=== PATIENT | male | born 1970 | race Caucasian/White ===

== ENCOUNTER 2021-03-17 09:55 | Inpatient (IN) ==
[2021-03-17] MEDS ORDERED: dexAMETHasone**PF** 10 MG/ML VIAL IV ONE (10:06)
--- NOTE | 2021-03-17 10:27 | XRay Report ---
XR chest 1V portable CLINICAL HISTORY: Dyspnea. COMPARISON STUDY: 03/15/2021 TECHNIQUE: 1 view of the chest FINDINGS: Single frontal view of the chest demonstrates the cardiomediastinal silhouette to be within normal li mits. Compared to the previous study, patchy interstitial and alveolar opacities are again present bi laterally. The findings are most characteristic of a viral type pneumonitis. Covid 19 pneumonia shoul d be excluded. There is no evidence for pleural effusion. There is no evidence for vascular congestio n. There is no acute osseous pathology. IMPRESSION: Compared to the previous examination, patchy interstitial and alveolar opacities are agai n seen bilaterally characteristic of a viral type pneumonitis and probable Covid 19 pneumonia. ACT 112: Negative or not required by law. Electronically signed by: Darren Campos M.D. 03/17/2021 10:26 AM
[2021-03-17 10:43] LABS: Base Excess VBG 1.6 mEq/L; pH VBG 7.47 (7.36-7.41)
--- NOTE | 2021-03-17 10:54 | Emergency Department Note ---
Impression & Plan Pneumonia due to 2019 novel coronavirus, Hypoxia, Atrial fibrillation, Rhabdomyolysis ED Provider Note NAME: HELENA LEE AGE: 50 SEX: M : 1970 ARRIVES VIA: Walk-In INFORMANT: Patient, ED PROVIDER(S): Seamus Huddleston DO CHIEF COMPLAINT: Shortness of breath HPI: The patient is a 50-year-old male who presented to emergency department for an evaluation of difficulty breathing. The patient was seen in our facility 2 d ays ago and diagnosed with COVID-19 pneumonia. He was sent home on oxygen and steroids but his symptoms are not improving. He is starting to have significant shortness of breath with exertion. He continues to use his oxygen but symptoms are not much better. The patient has not seen his family doctor. He has had symptoms for approximately 9 days. He states otherwise he has been compliant with his usual outpatient medications. He denies having any fever today. The patient states that he gets very short of breath with any exertion. He denies having any hemoptysis. He does have chest pain with cough. He denies having any lower extremity swelling. ROS: See above HPI for pertinent positives & negatives. A total of 10 systems reviewed and were otherwise negative. PAST MEDICAL HISTORY: See Below PAST SURGICAL HISTORY: See Below FAMILY HISTORY: See Below SOCIAL HISTORY: See Below HOME MEDICATIONS: See Below ALLERGIES: See Below VITALS: See Below PHYSICAL EXAMINATION: GENERAL: The patient is awake and alert. He is resting comfortably in bed. EYES: The conjunctivae are clear. The pupils are round and reactive. EARS, NOSE, MOUTH AND THROAT: The nose is without any evidence of any deformity. NECK: The neck is nontender and supple. RESPIRATORY: Diminished breath sounds are noted bilaterally. There were rales in both upper lung chapa. There was conversational dyspnea appreciated. CARDIOVASCULAR: Tachycardic rate with regular rhythm was noted. There was no definite murmur. GASTROINTESTINAL: The abdomen is soft. Abdomen is nontender. MUSCULOSKELETAL/EXTREMITIES: There is no evidence of gross deformity full range of motion is noted in the hips and shoulders. SKIN: There is no obvious evidence of any rash. There are no petechiae, pallor or cyanosis noted. NEUROLOGIC: Patient is awake alert and oriented x3 MEDICAL DECISION MAKING: The patient is a 50-year-old male who presented to the emergency department for an evaluation of difficulty breathing. The patient was seen in our facility 2 days ago with similar complaints. At that time he had a work-up and was found to be suffering from Covid pneumonia. He was sent home on supplemental oxygen. He was also has been checking his oxygen saturation at home. He was called by her case management social worker today for a follow-up and apparently the patient's breathing is not any better in fact his significant other states it is worse. The patient had significant conversational dyspnea. He was also found to be in atrial fibrillation. I discussed the patient's laboratory and radiographic studies with him. He was treated with IV steroids in the emergency department. The patient was also found to be in atrial fibrillation. Because of his findings I discussed his case with the on-call [facility] hospitalist. They have agreed to evaluate the patient in the emergency department. Triage Nursing notes reviewed. Prior medical records reviewed Vital Signs: reviewed and remarkable for tachycardia and hypoxia. Differential diagnosis: Reactive airway disease, pneumonia, pneumothorax, COPD, CHF, infections, cardiac ischemia, pulmonary embolism, musculoskeletal, gastrointestinal, as well as other pathologies. ER treatment provided: See below Diagnostics interpreted by me: ECG: EKG was obtained in the emergency department. My interpretation is atrial fibrillation at 99 bpm. There was no ectopy. There was no acute ST segment abnormalities noted. No previous tracing was available. Cardiac Monitoring: An order was placed for continuous cardiac monitoring. The monitor shows a rate of 106 bpm with atrial fibrillation. Laboratory studies: As stated above and show below. Imaging studies: See below Consultation(s): I discussed this case with Dr. Conroy [facility] Past Med/Surg History Medical History Contact dermatitis Elevated blood pressure reading in office without diagnosis of hypertension Hypertriglyceridemia, sporadic Impaired glucose metabolism Laceration of fifth finger, left, complicated Laceration of fifth finger, left, complicated Metabolic syndrome Open fracture of distal phalanx of fifth finger of left hand Post-operative pain Surgical History History of shoulder replacement partial left History of surgical amputation of finger of left hand pinky finger left hand History of tooth extraction History of wisdom tooth extraction Family History Father Dyslipidemia Mother Dyslipidemia Grandfather Prostate cancer Denies family history of Ovarian cancer Myocardial infarction Breast cancer Colorectal cancer Social History Smoking Status: Never smoker Second Hand Exposure: No; Hx Alcohol Use: Yes Hx Substance Use: No Preferred Language: Tajik Communication Ability: Effective Visual Impairment: No Limitations Hearing Ability: 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 Beliefs That Will Affect Care: None marital status: Current Living Situation: Family Current Living Situation Comment: and children current occupational status: employed current occupation: [employer] Feels Safe at Home: Yes Childhood Exposure to Second-Hand Smoke: Yes caffeine: No during the past year weight has: decreased > 10 lbs Dental Care, Regularly: No Physical Activity Frequency: Daily Seatbelt Use: always Sunscreen Use: Yes Allergies Allergies Allergy/AdvReac Type Severity Reaction Status Date / Time No Known Drug Allergies Allergy Verified 03/17/21 11:01 Home Meds Home Medications Medication Instructions Recorded Confirmed ascorbic acid (vitamin C) 500 mg 500 mg PO DAILY 03/15/21 03/17/21 tablet (Vitamin C) zinc 50 mg tablet 50 mg PO DAILY 03/15/21 03/17/21 Previous Rx's Medication Instructions Recorded dexamethasone 6 mg tablet 6 mg PO DAILY #7 tab 03/15/21 (Decadron) Results & Data (ED) Vital Signs Vital Signs - 24 hr 03/17/21 09:55 03/17/21 10:00 03/17/21 10:06 Temperature 36.7 C Temperature Source Oral Temporal Artery Scan Pulse Rate 117 H Pulse Rate [Finger] 109 H Pulse Rhythm [Finger] Pulse Strength [Finger] Normal Respiratory Rate 20 20 Respiratory Effort / Characteristics Non-Labored Respiratory Depth Normal Normal Respiratory Pattern Regular Blood Pressure 115/70 Blood Pressure [Right Arm] 110/78 Blood Pressure Mean 85 Blood Pressure Mean [Right Arm] 88 Blood Pressure Position [Right Arm] Sitting Pulse Oximetry 93 91 93 Oxygen Delivery Method Nasal Cannula Nasal Cannula Nasal Cannula Oxygen Flow Rate 4 4 4 Sepsis Recent Fever Within 48 Hours No Sepsis New/Unexplained Change in Mental Status No Sepsis Action Taken by Nursing No Action Required 03/17/21 11:36 Temperature Temperature Source Pulse Rate Pulse Rate [Finger] 94 H Pulse Rhythm [Finger] Irregular Pulse Strength [Finger] Normal Respiratory Rate 20 Respiratory Effort / Characteristics Non-Labored Respiratory Depth Normal Respiratory Pattern Blood Pressure Blood Pressure [Right Arm] 121/75 Blood Pressure Mean Blood Pressure Mean [Right Arm] 90 Blood Pressure Position [Right Arm] Sitting Pulse Oximetry 93 Oxygen Delivery Method Nasal Cannula Oxygen Flow Rate 4 Sepsis Recent Fever Within 48 Hours Sepsis New/Unexplained Change in Mental Status Sepsis Action Taken by Half-Way Medications Current Medication List: was personally reviewed by me Laboratory Data Attestation: I reviewed the patient's lab results. Result diagrams: 03/17/21 10:58 03/17/21 10:58 Lab Results 03/17/21 03/17/21 03/17/21 Range/Units 10:27 10:58 10:58 WBC 14.36 H (4.8-10.8) K/uL RBC 5.73 (4.7-6.1) M/uL Hgb 17.6 (14.0-18.0) g/dL Hct 50.9 (42-52) % MCV 88.8 (80-100) fL MCH 30.7 (25-34) pg MCHC 34.6 (32-36) g/dL RDW Std Deviation 42.5 (36.4-46.3) fL RDW Coeff of Rosalinda 13.0 (11.5-14.5) % Plt Count 246 D (130-400) K/uL MPV 10.2 (7.4-10.4) fL Immature Gran % (Auto) 0.1 % Neut % (Auto) 88.5 % Lymph % (Auto) 5.2 % Lincoln % (Auto) 6.1 % Eos % (Auto) 0.0 % Baso % (Auto) 0.1 % Neut # (Auto) 12.72 H (1.4-6.5) K/uL Lymph # (Auto) 0.74 L (1.2-3.4) K/uL Lincoln # (Auto) 0.87 H (0.11-0.59) K/uL Eos # (Auto) 0.00 (0-0.5) K/uL Baso # (Auto) 0.01 (0-0.2) K/uL Immature Gran # (Auto) 0.02 (0.00-0.02) K/uL PT 10.9 (9.0-12.0) Seconds INR 1.1 (0.9-1.1) APTT 29.5 (21.0-31.0) Seconds PTT Ratio 1.1 VBG pH 7.47 H (7.36-7.41) VBG pCO2 35 L (38-50) mmHg VBG pO2 49 mmHg VBG HCO3 25 mmol/L VBG O2 Saturation 84.0 % VBG Base Excess 1.6 mEq/L Barometric Pressure 733.9 mm/Hg Sodium (136-145) mmol/L Potassium (3.5-5.1) mmol/L Chloride (98-107) mmol/L Carbon Dioxide (21-32) mmol/L Anion Gap (3-11) BUN (7-18) mg/dl Creatinine (0.6-1.4) mg/dl Est Cr Clr Drug Dosing ml/min Est GFR ( Amer) ml/min Est GFR (Non-Af Amer) ml/min BUN/Creatinine Ratio (10-20) Glucose (70-99) mg/dl Calcium (8.5-10.1) mg/dl Magnesium (1.8-2.4) mg/dl Total Bilirubin (0.2-1) mg/dl AST (15-37) U/L ALT (12-78) Alkaline Phosphatase (45-117) U/L Total Creatine Kinase (39-308) U/L Troponin I (0-0.045) ng/ml C-Reactive Protein (0-0.29) mg/dl Total Protein (6.4-8.2) gm/dl Albumin (3.4-5.0) gm/dl Globulin (2.5-4.0) gm/dl Albumin/Globulin Ratio (0.9-2) 03/17/21 03/17/21 Range/Units 10:58 10:58 WBC (4.8-10.8) K/uL RBC (4.7-6.1) M/uL Hgb (14.0-18.0) g/dL Hct (42-52) % MCV (80-100) fL MCH (25-34) pg MCHC (32-36) g/dL RDW Std Deviation (36.4-46.3) fL RDW Coeff of Rosalinda (11.5-14.5) % Plt Count (130-400) K/uL MPV (7.4-10.4) fL Immature Gran % (Auto) % Neut % (Auto) % Lymph % (Auto) % Lincoln % (Auto) % Eos % (Auto) % Baso % (Auto) % Neut # (Auto) (1.4-6.5) K/uL Lymph # (Auto) (1.2-3.4) K/uL Lincoln # (Auto) (0.11-0.59) K/uL Eos # (Auto) (0-0.5) K/uL Baso # (Auto) (0-0.2) K/uL Immature Gran # (Auto) (0.00-0.02) K/uL PT (9.0-12.0) Seconds INR (0.9-1.1) APTT (21.0-31.0) Seconds PTT Ratio VBG pH (7.36-7.41) VBG pCO2 (38-50) mmHg VBG pO2 mmHg VBG HCO3 mmol/L VBG O2 Saturation % VBG Base Excess mEq/L Barometric Pressure mm/Hg Sodium 136 (136-145) mmol/L Potassium 3.6 (3.5-5.1) mmol/L Chloride 103 (98-107) mmol/L Carbon Dioxide 24 (21-32) mmol/L Anion Gap 9.0 (3-11) BUN 20 H (7-18) mg/dl Creatinine 1.14 (0.6-1.4) mg/dl Est Cr Clr Drug Dosing 99.8 ml/min Est GFR ( Amer) 86.4 ml/min Est GFR (Non-Af Amer) 74.6 ml/min BUN/Creatinine Ratio 17.2 (10-20) Glucose 167 H (70-99) mg/dl Calcium 8.1 L (8.5-10.1) mg/dl Magnesium 2.5 H (1.8-2.4) mg/dl Total Bilirubin 0.4 (0.2-1) mg/dl AST 135 H (15-37) U/L ALT 101 H (12-78) Alkaline Phosphatase 59 (45-117) U/L Total Creatine Kinase 3164 H (39-308) U/L Troponin I < 0.015 (0-0.045) ng/ml C-Reactive Protein 0.62 H (0-0.29) mg/dl Total Protein 7.2 (6.4-8.2) gm/dl Albumin 2.9 L (3.4-5.0) gm/dl Globulin 4.3 H (2.5-4.0) gm/dl Albumin/Globulin Ratio 0.7 L (0.9-2) Administered Medications Heparin Sodium/Dextrose (Heparin Sodium/Dextrose) 25,000 units in 500 mls @ 33 mls/hr IV .[id number] [facility]; Protocol Stop: 04/16/21 13:14 Last Admin: 03/17/21 13:56 Dose: 1,650 units/hr, 33 mls/hr Documented by: [id number] Cosigned by: [id number] Discontinued Medications Dexamethasone Sodium Phosphate (DexamethasonePf 10 Mg/Ml Vial) 10 mg IV NOW ONE Stop: 03/17/21 10:07 Last Admin: 03/17/21 10:35 Dose: 10 mg Documented by: [id number] Furosemide (Furosemide 40 Mg/4 Ml Vial) 40 mg IV ONE STA Stop: 03/17/21 12:58 Last Admin: 03/17/21 13:53 Dose: 40 mg Documented by: [id number] Heparin Sodium (Porcine) (Heparin Sod (Porcine) 1000 Unit/Ml) 7,000 units IV NOW ONE Stop: 03/17/21 13:14 Last Admin: 03/17/21 13:56 Dose: 7,000 units Documented by: [id number] Cosigned by: [id number] Imaging Data Radiologist's Impression: Chest X-Ray 03/17/21 10:06 XR chest 1V portable CLINICAL HISTORY: Dyspnea. COMPARISON STUDY: 03/15/2021 TECHNIQUE: 1 view of the chest FINDINGS: Single frontal view of the chest demonstrates the cardiomediastinal silhouette to be within normal limits. Compared to the previous study, patchy interstitial and alveolar opacities are again present bilaterally. The findings are most characteristic of a viral type pneumonitis. Covid 19 pneumonia should be excluded. There is no evidence for pleural effusion. There is no evidence for vascular congestion. There is no acute osseous pathology. IMPRESSION: Compared to the previous examination, patchy interstitial and alveolar opacities are again seen bilaterally characteristic of a viral type pneumonitis and probable Covid 19 pneumonia. ACT 112: Negative or not required by law. Electronically signed by: Darren Campos M.D. 03/17/2021 10:26 AM Discharge Plan Visit Data Chief Complaint: Respiratory Problems Stated Complaint: COUGH,OXYGEN IS LOW,COVID POSITIVE ED Provider: Seamus Huddleston Discharge Problem: Pneumonia due to 2019 novel coronavirus, Hypoxia, Atrial fibrillation, Rhabdomyolysis Patient Disposition: Being Evaluated by Hospitalist
[2021-03-17 11:24] LABS: Hematocrit (blood only) 50.9 % (42-52); Hemoglobin 17.6 g/dL (14.0-18.0); Mean Corpuscular Hemoglobin 30.7 pg (25-34); Mean Corpuscular Hgb Conc 34.6 g/dL (32-36); Mean Corpuscular Volume 88.8 fL (80-100); Mean Platelet Volume 10.2 fL (7.4-10.4); Platelet Count 246 K/uL (130-400); RDW Standard Deviation 42.5 fL (36.4-46.3); Red Blood Count 5.73 M/uL (4.7-6.1); White Blood Count 14.36 K/uL (4.8-10.8)
[2021-03-17 11:35] LABS: Alanine Aminotransferase 101 (12-78); Albumin Level 2.9 gm/dl (3.4-5.0); Aspartate Aminotransferase 135 U/L (15-37); BUN Creatinine Ratio 17.2 (10-20); Blood Urea Nitrogen 20 mg/dl (7-18); C Reactive Protein 0.62 mg/dl (0-0.29); Calcium 8.1 mg/dl (8.5-10.1); Carbon Dioxide 24 mmol/L (21-32); Chloride 103 mmol/L (98-107); Creatinine Clr Calc Pharmacy 99.8 ml/min; Est GFR (African American) 86.4 ml/min; Est GFR (Non-African American) 74.6 ml/min; Glucose 167 mg/dl (70-99); Magnesium 2.5 mg/dl (1.8-2.4); Potassium 3.6 mmol/L (3.5-5.1); Sodium 136 mmol/L (136-145)
[2021-03-17 11:36] LABS: Basophils # (auto) 0.01 K/uL (0-0.2); Basophils % (auto) 0.1 %; Immature Granulocytes # (auto) 0.02 K/uL (0.00-0.02); Immature Granulocytes % (auto) 0.1 %; Lymphocytes # (auto) 0.74 K/uL (1.2-3.4); Lymphocytes % (auto) 5.2 %; Monocytes # (auto) 0.87 K/uL (0.11-0.59); Monocytes % (auto) 6.1 %; Neutrophils # (auto) 12.72 K/uL (1.4-6.5); Neutrophils % (auto) 88.5 %
[2021-03-17 11:39] LABS: INR 1.1 (0.9-1.1); Partial Thromboplastin Ratio 1.1; Partial Thromboplastin Time 29.5 Seconds (21.0-31.0); Prothrombin Time 10.9 Seconds (9.0-12.0)
[2021-03-17 11:40] LABS: Albumin Globulin Ratio 0.7 (0.9-2); Alkaline Phosphatase 59 U/L (45-117); Bilirubin,Total 0.4 mg/dl (0.2-1); Globulin 4.3 gm/dl (2.5-4.0); Total Protein 7.2 gm/dl (6.4-8.2); Troponin I < 0.015 ng/ml (0-0.045)
--- NOTE | 2021-03-17 11:40 | History & Physical Report ---
Date of Service March 17, 2021 Assessment & Plan (1) Pneumonia due to COVID-19 virus: Plan: Unvaccinated. No prior COVID. Started on Dexamethasone 6mg IV 03/15, continue dose 10 days total Given his proteinuria, limited effectiveness and day 10 of illness would hold off giving remdesivir this time. CRP improving I&Os, maintain negative balance with Lasix PRN (2) Atrial fibrillation with rapid ventricular response: Plan: Start metoprolol tartrate 25 mg p.o. twice daily Anticoagulation with IV heparin standard with bolus TTE TSH with a.m. labs (3) Acute congestive heart failure: Plan: Suspect just from rate related atrial fibrillation Lasix 40 mg IV now TTE (4) Acute respiratory failure with hypoxia: Plan: Secondary to COVID-19 pneumonia +/-mild heart failure from rate related atrial fibrillation Aim O2 sats > 90% (5) Proteinuria: Plan: Will need follow up in 4 to 6 weeks to repeat this. Blood without red blood cells concerning for myoglobinuria. Will get CK level. Plan: VTE prophylaxis-IV heparin Diet -regular Disposition -admit to [facility] telemetry Admission and Anticipated Discharge Date Admission Date: March 17, 2021 History of Present Illness Chief Complaint: Shortness of breath Primary Care Provider: Yahir Jimenez MD Gael Wadsworth is a 50 year old male who presents to the ER with shortness of breath and cough. He is unvaccinated for SARS-CoV-2 and has known COVID-19 pneumonia. He was recently seen in the emergency room 2 days ago and discharged on oxygen and dexamethasone. On follow-up from that visit by phone call today it was recommended he return to the emergency room as appeared to be in increasing respiratory distress. He has been wearing 2 L/min O2 at night however he reports waking up this morning with his O2 sats at 84% on this amount of oxygen. He reports his main problem is shortness of breath especially during a dry coughing spell. He does report mild diarrhea, chest pain only while coughing. He lives with his and 3 children and is managing to isolate upstairs away from them. He thinks he caught this during [place] [employer] [place]. Currently on day 10 of illness. In the ER he was also noted to be in atrial fibrillation. He reports having a history of this. No palpitations, leg swelling, orthopnea or PND. He was re ferred to medicine for admission ongoing management of COVID-19 pneumonia and atrial fibrillation with rapid ventricular rate. Allergies Allergy/AdvReac Type Severity Reaction Status Date / Time No Known Drug Allergies Allergy Verified 03/17/21 11:01 Home Medications Medication Instructions Recorded Confirmed Type ascorbic acid (vitamin C) 500 mg 500 mg PO DAILY 03/15/21 03/17/21 History tablet (Vitamin C) dexamethasone 6 mg tablet 6 mg PO DAILY #7 tab 03/15/21 03/17/21 Rx (Decadron) zinc 50 mg tablet 50 mg PO DAILY 03/15/21 03/17/21 History Past Med/Surg History Medical History Contact dermatitis Elevated blood pressure reading in office without diagnosis of hypertension Hypertriglyceridemia, sporadic Impaired glucose metabolism Laceration of fifth finger, left, complicated Laceration of fifth finger, left, complicated Metabolic syndrome Open fracture of distal phalanx of fifth finger of left hand Post-operative pain Surgical History History of shoulder replacement partial left History of surgical amputation of finger of left hand pinky finger left hand History of tooth extraction History of wisdom tooth extraction Family History Father Dyslipidemia Mother Dyslipidemia Grandfather Prostate cancer Denies family history of Ovarian cancer Myocardial infarction Breast cancer Colorectal cancer Social History Smoking Status: Never smoker Second Hand Exposure: No; Hx Alcohol Use: Yes Alcohol type: beer Hx Substance Use: No Preferred Language: Bengali Communication Ability: Effective Visual Impairment: No Limitations Hearing Ability: Normal 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 Beliefs That Will Affect Care: None marital status: Current Living Situation: Spouse Current Living Situation Comment: and children current occupational status: employed current occupation: [employer] Other Information That Helps Us Care for You: No Feels Safe at Home: Yes Safety Concerns: Feels Safe At This Time Childhood Exposure to Second-Hand Smoke: Yes caffeine: No during the past year weight has: decreased > 10 lbs Dental Care, Regularly: No Physical Activity Frequency: Daily Seatbelt Use: always Sunscreen Use: Yes Assistive Devices: Oxygen - Continuous Review of Systems Review of Systems: All systems reviewed & are unremarkable except as noted in HPI & below Physical Exam Constitutional: WD/WN, vitals as above no acute distress Eyes: + anicteric sclerae; normal pupil size ENMT: external ear and nose normal, oropharynx normal Neck: trachea midline, no thyromegaly Respiratory: normal respiratory effort; no respiratory distress Auscultati on: + crackles (Fine bibasal); no diminished lung sounds, no rhonchi and no wheezes Cardiovascular: Rate/Rhythm: + tachycardic and + irregularly irregular Heart Sounds: no murmur Extremities: normal capillary refill; no calf tenderness and no pedal edema Gastrointestinal (Abdomen): normal bowel sounds, soft, nontender, no hepatosplenomegaly Musculoskeletal: no cyanosis or clubbing, extremities motor strength 5/5 Skin: no rashes, warm and dry Neurologic: moves all extremities and awake; no focal motor deficits and not confused Psychiatric: A+Ox3, euthymic affect Genitourinary: no CVA tenderness Results & Data Results & Data ([facility]) Vital Signs (Past 12 Hours) Vital Signs Temp Pulse Pulse Resp BP BP Pulse Ox 03/17/21 10:06 93 03/17/21 10:00 36.7 C 117 H 20 115/70 91 03/17/21 09:55 109 H 20 110/78 93 Laboratory Results Abnormal lab results 03/17/21 03/17/21 03/17/21 Range/Units 10:27 10:58 10:58 WBC 14.36 H (4.8-10.8) K/uL Neut # (Auto) 12.72 H (1.4-6.5) K/uL Lymph # (Auto) 0.74 L (1.2-3.4) K/uL [place] # (Auto) 0.87 H (0.11-0.59) K/uL VBG pH 7.47 H (7.36-7.41) VBG pCO2 35 L (38-50) mmHg BUN 20 H (7-18) mg/dl Glucose 167 H (70-99) mg/dl Calcium 8.1 L (8.5-10.1) mg/dl Magnesium 2.5 H (1.8-2.4) mg/dl AST 135 H (15-37) U/L ALT 101 H (12-78) C-Reactive Protein 0.62 H (0-0.29) mg/dl Albumin 2.9 L (3.4-5.0) gm/dl Globulin 4.3 H (2.5-4.0) gm/dl Albumin/Globulin Ratio 0.7 L (0.9-2) Ur Specific Patterson (1.000-1.030) Urine Protein (Negative) Urine Blood (Negative) Urine WBC (Auto) (0-5) /hpf U Epithel Cells (Auto) (0-5) /lpf Urine Bacteria (Auto) (Negative) Urine Mucus (None Prsent) 03/17/21 Range/Units Unknown WBC (4.8-10.8) K/uL Neut # (Auto) (1.4-6.5) K/uL Lymph # (Auto) (1.2-3.4) K/uL [place] # (Auto) (0.11-0.59) K/uL VBG pH (7.36-7.41) VBG pCO2 (38-50) mmHg BUN (7-18) mg/dl Glucose (70-99) mg/dl Calcium (8.5-10.1) mg/dl Magnesium (1.8-2.4) mg/dl AST (15-37) U/L ALT (12-78) C-Reactive Protein (0-0.29) mg/dl Albumin (3.4-5.0) gm/dl Globulin (2.5-4.0) gm/dl Albumin/Globulin Ratio (0.9-2) Ur Specific Patterson 1.033 H (1.000-1.030) Urine Protein 4+ H (Negative) Urine Blood 3+ H (Negative) Urine WBC (Auto) 5-10 H (0-5) /hpf U Epithel Cells (Auto) 5-10 H (0-5) /lpf Urine Bacteria (Auto) 1+ H (Negative) Urine Mucus Present A (None Prsent) Diagnostic Findings XR chest 1V portable CLINICAL HISTORY: Dyspnea. COMPARISON STUDY: 03/15/2021 TECHNIQUE: 1 view of the chest FINDINGS: Single frontal view of the chest demonstrates the cardiomediastinal silhouette to be within normal limits. Compared to the previous study, patchy interstitial and alveolar opacities are again present bilaterally. The findings are most characteristic of a viral type pneumonitis. Covid 19 pneumonia should be exc luded. There is no evidence for pleural effusion. There is no evidence for vascular congestion. There is no acute osseous pathology. IMPRESSION: Compared to the previous examination, patchy interstitial and alveolar opacities are again seen bilaterally characteristic of a viral type pneumonitis and probable Covid 19 pneumonia. Medications Administered ER Medications Given: Dexamethasone 10mg IV ECG Indication: other (Irregular rhythm) Rate (beats per minute): 99 Rhythm: atrial fibrillation Findings: + other (T wave flattening in lateral leads); no acute ischemic change Comparison ECG Date: from (March 15, 2021) Change: the following changes noted (Atrial fibrillation has replaced sinus rhythm) Code Status & VTE Plan Code Status Full VTE Prophylaxis Plan VTE Prophylaxis will be ordered: Yes PG Care Time/CCT Total # of Minutes Spent Total Time Spent with Patient: Total time spent is greater than 50% in coordination of care (as documented) at patient's floor/unit and/or counseling patient: Coding Level of Care Code 27764 Initial Inpt Care Lvl 3 Diagnoses Pneumonia due to COVID-19 virus U07.1; J12.82 Acute respiratory failure with hypoxia J96.01 Proteinuria R80.9 Atrial fibrillation with rapid ventricular response I48.91 Acute congestive heart failure I50.9
[2021-03-17 12:00] LABS: Appearance Urine Clear (Clear); Bilirubin Urine Negative (Negative); Blood Urine 3+ (Negative); Color Urine Dark Yellow; Glucose Urine UA Negative (Negative); Ketones Urine Negative (Negative); Leukocyte Esterase Urine Negative (Negative); Nitrite Urine Negative (Negative); Protein Urine 4+ (Negative); RBC Urine Automated 0-4 /hpf (0-4); Specific Gravity Urine 1.033 (1.000-1.030); Urobilinogen Urine Negative (Negative)
[2021-03-17 12:14] LABS: Mucus Urine Present (None Prsent)
[2021-03-17 12:16] LABS: Bacteria Urine Automated 1+ (Negative)
[2021-03-17] MEDS ORDERED: FUROSEMIDE 40 MG/4 ML VIAL IV STA (12:57)
[2021-03-17] MEDS ORDERED: Heparin IV Adult Wt-Based Standard WITH Bolus Protocol IV SCH (13:01)
[2021-03-17] MEDS ORDERED: HEPARIN SOD (PORCINE) 1000 UNIT/ML IV ONE (13:13)
[2021-03-17] MEDS: HEPARIN SODIUM/DEXTROSE 25,000 UNITS/500 ML BAG IV SCH (13:56)
--- NOTE | 2021-03-17 15:15 | Electrocardiogram Report ---
Test Reason : Blood Pressure : / mmHG Vent. Rate : 099 BPM Atrial Rate : 086 BPM P-R Int : 000 ms QRS Dur : 090 ms QT Int : 364 ms P-R-T Axes : 000 031 -01 degrees QTc Int : 467 ms Atrial fibrillation Abnormal ECG When compared with ECG of 15-MAR-2021 16:11, Atrial fibrillation has replaced Sinus rhythm Nonspecific T wave abnormality now evident in Lateral leads Confirmed by Seamus Marie ([id number]) on 03/17/2021 3:14:36 PM Referred By: REFERRED SELF Confirmed By:Seamus Marie
[2021-03-17] MEDS ORDERED: ACETAMINOPHEN 325 MG TAB PO PRN (16:25)
[2021-03-17] MEDS ORDERED: GLUCOSE 40% GEL 15 GM TUBE PO PRN (16:25)
[2021-03-17] MEDS ORDERED: DEXTROSE 50% 50 ML SYRINGE IV PRN (16:25)
[2021-03-17] MEDS ORDERED: CARBOHYDRATES FOR HYPOGLYCEMIA PO PRN (16:25)
[2021-03-17] MEDS ORDERED: ONDANSETRON INJ 2 MG/ML 2 ML VIAL IV PRN (16:25)
[2021-03-17] MEDS ORDERED: GLUCOSE 10 TABS/TUBE PO PRN (16:25)
[2021-03-17] MEDS ORDERED: GLUCAGON FOR INJ 1 MG VIAL SQ PRN (16:25)
[2021-03-17] MEDS: INSULIN ASPART PER UNIT SC SCH ×2 (18:20→21:33)
[2021-03-17] MEDS: METOPROLOL TARTRATE 25 MG TAB PO SCH (20:50)
[2021-03-17] MEDS ORDERED: ENOXAPARIN INJ 40 MG/0.4 ML SYR SQ SCH (21:00)
[2021-03-17 21:15] LABS: Partial Thromboplastin Ratio 3.8
[2021-03-17 21:23] LABS: Partial Thromboplastin Time 99.9 Seconds (21.0-31.0)
--- NOTE | 2021-03-18 02:49 | Communication Note ---
Date of Service: March 17, 2021 Creatine kinase added to labs due to 3+ blood in urine with no RBC concerning for myoglobinuria. Total CK elevated to 3164 units/L. Would avoid further Lasix for now but also avoid IV fluids in setting of COVID-19. Repeat in a.m. with total CK and CK-MB.
[2021-03-18] MEDS ORDERED: DEXTROMETHORPHAN POLYMR COMPLX 30 MG/5 ML UDP PO PRN (02:52)
[2021-03-18 04:34] LABS: Basophils # (auto) 0.04 K/uL (0-0.2); Basophils % (auto) 0.3 %; Hematocrit (blood only) 50.6 % (42-52); Hemoglobin 17.4 g/dL (14.0-18.0); Immature Granulocytes # (auto) 0.02 K/uL (0.00-0.02); Immature Granulocytes % (auto) 0.1 %; Lymphocytes # (auto) 0.78 K/uL (1.2-3.4); Lymphocytes % (auto) 5.6 %; Mean Corpuscular Hemoglobin 30.6 pg (25-34); Mean Corpuscular Hgb Conc 34.4 g/dL (32-36); Mean Corpuscular Volume 88.9 fL (80-100); Mean Platelet Volume 9.5 fL (7.4-10.4); Monocytes # (auto) 0.94 K/uL (0.11-0.59); Monocytes % (auto) 6.7 %; Neutrophils # (auto) 12.16 K/uL (1.4-6.5); Neutrophils % (auto) 87.3 %; Platelet Count 248 K/uL (130-400); RDW Standard Deviation 42.8 fL (36.4-46.3); Red Blood Count 5.69 M/uL (4.7-6.1); White Blood Count 13.94 K/uL (4.8-10.8)
[2021-03-18 04:52] LABS: Albumin Level 2.6 gm/dl (3.4-5.0); BUN Creatinine Ratio 16.2 (10-20); C Reactive Protein 0.77 mg/dl (0-0.29); Calcium 7.9 mg/dl (8.5-10.1); Creatinine Clr Calc Pharmacy 75.1 ml/min; Est GFR (African American) 71.7 ml/min; Est GFR (Non-African American) 61.9 ml/min; Potassium 3.9 mmol/L (3.5-5.1)
[2021-03-18 04:57] LABS: Partial Thromboplastin Ratio 2.5
[2021-03-18 04:59] LABS: Partial Thromboplastin Time 65.5 Seconds (21.0-31.0)
[2021-03-18 05:07] LABS: Albumin Globulin Ratio 0.6 (0.9-2); Bilirubin,Total 0.6 mg/dl (0.2-1); Creatine Kinase MB 19.5 ng/ml (0.5-3.6); Globulin 4.3 gm/dl (2.5-4.0); Thyroid Stimulating Hormone 0.374 uIu/ml (0.300-4.500); Total Protein 6.9 gm/dl (6.4-8.2)
[2021-03-18] MEDS: HEPARIN SODIUM/DEXTROSE 25,000 UNITS/500 ML BAG IV SCH (05:37)
--- NOTE | 2021-03-18 08:34 | Hospitalist Progress Note ---
Date of Service March 18, 2021 Assessment & Plan (1) Acute respiratory failure with hypoxia: Plan: Secondary to COVID-19 pneumonia +/-mild heart failure preserved ejection fraction from rate related atrial fibrillation Aim O2 sats > 90% (2) Pneumonia due to COVID-19 virus: Plan: Unvaccinated. No prior COVID. Started on Dexamethasone 6mg IV 12/8 Given day 10 of illness out of time frame remdesivir this time. CRP improving I&Os, maintain negative balance with Lasix PRN Improvement in oxygen requirement with proning (3) Atrial fibrillation with rapid ventricular response: Plan: Likely related to stressor of illness and possibley covid affect on heart Start metoprolol tartrate 25 mg p.o. twice daily Anticoagulation with IV heparin standard with bolus. can transition to lovenox when stable TTE echocardiogram performed 1211 shows moderate concentric LVH, EF 50 to 55% dilated right ventricle with normal right ventricular function no significant valvular abnormalities TSH normal 03/18/21 (4) Acute congestive heart failure: Plan: Suspect just from rate related atrial fibrillation Lasix 40 mg IV TTE (5) Proteinuria: Plan: Will need follow up in 4 to 6 weeks to repeat this. urine without red blood cells concerning for myoglobinuria. elevated CK, Plan: VTE prophylaxis-IV therapeutic enoxaparin due to atrial arrhythmia Diet -regular Disposition -admit to [facility] telemetry Admission and Anticipated Discharge Date Admission Date: March 17, 2021 Subjective Patient was proning when I entered the room he feels better after proning for most of the morning. His oxygen saturations also improved and his oxygen need is gone down. He is in a productive cough Review of Systems Review of Systems: Moderate distress and fatigue no headache, no visual changes no speech or swallowing issues no chest pain, pressure or palpitations Continue shortness of breath, nonproductive cough or wheezes no abdominal pain, nausea or vomiting, no diarrhea no dysuria, hematuria or frequency no focal joint pain or swelling no back pain, CVA tenderness or radicular pain no bruising, bleeding or rashes no focal signs of weakness or numbness or altered sensation no complaints of anxiety or depression.. Physical Exam Physical Exam: The patient appeared mild to moderate respiratory distress Vital signs as documented. Head exam is normocephalic atraumatic Neck is without JVD, thyromegaly, or carotid bruits. Lungs are coarse bilaterally in all lung chapa tachypnea Cardiac exam, Rhythm is regular.. No murmurs, rubs or gallops. Abdominal exam reveals normal bowel sounds, soft non tender, no masses Extremities are nonedematous and both pedal pulses are present Neurologic exam is alert and oriented, no focal loss of strength or sensation Skin is without bruises or rashes Psychologically is without concerns for anxiety or depression.. Results & Data Results & Data ([facility]) Vital Signs (Past 12 Hours) Vital Signs Temp Pulse Pulse Resp BP Pulse Ox Pulse Ox 03/18/21 07:41 90 03/18/21 06:24 98.8 F 90 18 116/80 90 03/18/21 02:15 98.8 F 78 18 110/68 90 03/18/21 00:21 98.8 F 94 H 18 116/71 90 03/17/21 23:00 86 18 104/70 92 92 03/17/21 20:51 94 H 16 106/77 91 PG Care Time/CCT Total # of Minutes Spent Total Time Spent with Patient: Total time spent is greater than 50% in coordination of care (as documented) at patient's floor/unit and/or counseling patient: Coding Level of Care Code 15441 Subseq Hosp Care Lvl 3 Diagnoses Pneumonia due to COVID-19 virus U07.1; J12.82 Atrial fibrillation with rapid ventricular response I48.91 Acute congestive heart failure I50.9 Acute respiratory failure with hypoxia J96.01 Proteinuria R80.9
[2021-03-18] MEDS: dexAMETHasone 6 MG in SYRINGE 0 ML IV SCH (08:50)
[2021-03-18] MEDS: ASCORBIC ACID 500 MG TAB PO SCH (08:51)
[2021-03-18] MEDS: METOPROLOL TARTRATE 25 MG TAB PO SCH ×2 (08:51→20:33)
[2021-03-18] MEDS ORDERED: FUROSEMIDE 40 MG/4 ML VIAL IV SCH (09:00)
[2021-03-18] MEDS: INSULIN ASPART PER UNIT SC SCH ×4 (09:15→21:25)
[2021-03-18] MEDS ORDERED: ENOXAPARIN 1 MG/KG SQ SCH (19:00)
[2021-03-18] MEDS: ENOXAPARIN 100 MG/1ML SYR SQ SCH (20:28)
[2021-03-19] MEDS ORDERED: COUGH DROP (SUGAR FREE) LOZ 24 LOZ/1 BOX BUCCAL PRN (01:07)
[2021-03-19] MEDS ORDERED: BENZONATATE 100 MG CAPSULE PO PRN (01:08)
[2021-03-19] MEDS ORDERED: ALBUT/IPRATROP 3MG/0.5MG NEB 3 ML VIAL NEB STA (01:45)
[2021-03-19] MEDS: ENOXAPARIN 100 MG/1ML SYR SQ SCH ×2 (06:35→20:25)
[2021-03-19] MEDS: ASCORBIC ACID 500 MG TAB PO SCH (09:00)
[2021-03-19] MEDS: dexAMETHasone 6 MG in SYRINGE 0 ML IV SCH (09:00)
[2021-03-19] MEDS: METOPROLOL TARTRATE 25 MG TAB PO SCH ×2 (09:01→20:25)
[2021-03-19 09:06] LABS: BUN Creatinine Ratio 22.5 (10-20); Calcium 8.1 mg/dl (8.5-10.1); Creatinine Clr Calc Pharmacy 91.6 ml/min; Est GFR (African American) 91.2 ml/min; Est GFR (Non-African American) 78.7 ml/min; Potassium 4.2 mmol/L (3.5-5.1)
[2021-03-19] MEDS: INSULIN ASPART PER UNIT SC SCH ×4 (09:28→21:00)
--- NOTE | 2021-03-19 17:56 | Hospitalist Progress Note ---
Date of Service March 19, 2021 Assessment & Plan (1) Acute respiratory failure with hypoxia: Plan: Secondary to COVID-19 pneumonia +/-mild heart failure preserved ejection fraction from rate related atrial fibrillation Aim O2 sats > 90% (2) Pneumonia due to COVID-19 virus: Plan: Unvaccinated. No prior COVID. Started on Dexamethasone 6mg IV 12/8 Given day 10 of illness out of time frame remdesivir this time. CRP to low for baricitinib (3) Atrial fibrillation with rapid ventricular response: Plan: Likely related to stressor of illness and possibley covid affect on heart Start metoprolol tartrate 25 mg p.o. twice daily Anticoagulation with IV heparin standard with bolus. transitioned to lovenox when stable TTE echocardiogram performed 1211 shows moderate concentric LVH, EF 50 to 55% dilated right ventricle with normal right ventricular function no significant valvular abnormalities TSH normal 03/18/21 (4) Acute congestive heart failure: Plan: Suspect just from rate related atrial fibrillation Lasix 40 mg IV TTE shows preserved EF (5) Proteinuria: Plan: Will need follow up in 4 to 6 weeks to repeat this. urine without red blood cells concerning for myoglobinuria. elevated CK, but down trending concern if myositis from covid repeat ua for blood and rbc Plan: VTE prophylaxis-IV therapeutic enoxaparin due to atrial arrhythmia Diet -regular Disposition -admit to [facility] telemetry Admission and Anticipated Discharge Date Admission Date: March 17, 2021 Subjective Patient continues to be good at proning and he feels better after proning for most of the morning. His oxygen saturations are stable. He is with a productive cough Review of Systems Review of Systems: Moderate distress and fatigue no headache, no visual changes no speech or swallowing issues no chest pain, pressure or palpitations Continue shortness of breath, nonproductive cough or wheezes no abdominal pain, nausea or vomiting, no diarrhea no dysuria, hematuria or frequency no focal joint pain or swelling no back pain, CVA tenderness or radicular pain no bruising, bleeding or rashes no focal signs of weakness or numbness or altered sensation no complaints of anxiety or depression.. Physical Exam Physical Exam: The patient appeared mild to moderate respiratory distress Vital signs as documented. Head exam is normocephalic atraumatic Neck is without JVD, thyromegaly, or carotid bruits. Lungs are coarse bilaterally in all lung chapa tachypnea Cardiac exam, Rhythm is regular.. No murmurs, rubs or gallops. Abdominal exam reveals normal bowel sounds, soft non tender, no masses Extremities are nonedematous and both pedal pulses are present Neurologic exam is alert and oriented, no focal loss of strength or sensation Skin is without bruises or rashes Psychologically is without concerns for anxiety or depression.. Results & Data Results & Data ([facility]) Vital Signs (Past 12 Hours) Vital Signs Temp Pulse Pulse Resp BP Pulse Ox 03/19/21 17:00 97.9 F 88 20 108/71 93 03/19/21 15:14 84 03/19/21 12:00 98.2 F 82 20 101/67 92 03/19/21 08:00 98.1 F 85 90 20 101/59 L 95 PG Care Time/CCT Total # of Minutes Spent Total Time Spent with Patient: Total time spent is greater than 50% in coordination of care (as documented) at patient's floor/unit and/or counseling patient: Coding Level of Care Code 26395 Subseq Hosp Care Lvl 3 Diagnoses Acute respiratory failure with hypoxia J96.01 Pneumonia due to COVID-19 virus U07.1; J12.82 Atrial fibrillation with rapid ventricular response I48.91 Acute congestive heart failure I50.9 Proteinuria R80.9
[2021-03-20 00:39] LABS: Appearance Urine Clear (Clear); Bacteria Urine Automated Negative (Negative); Bilirubin Urine Negative (Negative); Blood Urine 3+ (Negative); Color Urine Dark Yellow; Glucose Urine UA Negative (Negative); Ketones Urine Negative (Negative); Leukocyte Esterase Urine Negative (Negative); Nitrite Urine Negative (Negative); Protein Urine 3+ (Negative); RBC Urine Automated 0-4 /hpf (0-4); Specific Gravity Urine 1.033 (1.000-1.030); Urobilinogen Urine Negative (Negative)
[2021-03-20] MEDS: ENOXAPARIN 100 MG/1ML SYR SQ SCH ×2 (07:59→20:58)
[2021-03-20] MEDS: dexAMETHasone 6 MG in SYRINGE 0 ML IV SCH (07:59)
[2021-03-20] MEDS: METOPROLOL TARTRATE 25 MG TAB PO SCH ×2 (08:00→21:02)
[2021-03-20] MEDS: ASCORBIC ACID 500 MG TAB PO SCH (08:00)
[2021-03-20 08:06] LABS: Basophils # (auto) 0.02 K/uL (0-0.2); Basophils % (auto) 0.2 %; Hematocrit (blood only) 52.2 % (42-52); Hemoglobin 17.5 g/dL (14.0-18.0); Immature Granulocytes # (auto) 0.02 K/uL (0.00-0.02); Immature Granulocytes % (auto) 0.2 %; Lymphocytes # (auto) 0.73 K/uL (1.2-3.4); Lymphocytes % (auto) 6.8 %; Mean Corpuscular Hemoglobin 30.4 pg (25-34); Mean Corpuscular Hgb Conc 33.5 g/dL (32-36); Mean Corpuscular Volume 90.6 fL (80-100); Monocytes # (auto) 0.51 K/uL (0.11-0.59); Monocytes % (auto) 4.7 %; Neutrophils # (auto) 9.48 K/uL (1.4-6.5); Neutrophils % (auto) 88.1 %; Platelet Count 274 K/uL (130-400); RDW Coefficient of Variation 12.9 % (11.5-14.5); RDW Standard Deviation 42.3 fL (36.4-46.3); Red Blood Count 5.76 M/uL (4.7-6.1); White Blood Count 10.76 K/uL (4.8-10.8)
[2021-03-20] MEDS: INSULIN ASPART PER UNIT SC SCH ×4 (08:27→21:26)
--- NOTE | 2021-03-20 20:11 | Hospitalist Progress Note ---
Date of Service March 20, 2021 Assessment & Plan (1) Acute respiratory failure with hypoxia: Plan: Secondary to COVID-19 pneumonia +/-mild heart failure preserved ejection fraction from rate related atrial fibrillation Aim O2 sats > 90% (2) Pneumonia due to COVID-19 virus: Plan: Unvaccinated. No prior COVID. Started on Dexamethasone 6mg IV 12/8 Given day 10 of illness out of time frame remdesivir this time. CRP to low for baricitinib (3) Atrial fibrillation with rapid ventricular response: Plan: Likely related to stressor of illness and possibley covid affect on heart Start metoprolol tartrate 25 mg p.o. twice daily Anticoagulation with IV heparin standard with bolus. transitioned to lovenox when stable TTE echocardiogram performed 1211 shows moderate concentric LVH, EF 50 to 55% dilated right ventricle with normal right ventricular function no significant valvular abnormalities TSH normal 03/18/21 (4) Acute congestive heart failure: Plan: Suspect just from rate related atrial fibrillation Lasix 40 mg IV TTE shows preserved EF (5) Proteinuria: Plan: Will need follow up in 4 to 6 weeks to repeat this. urine without red blood cells concerning for myoglobinuria. elevated CK, but down trending concern if myositis from covid repeat ua for blood and rbc , shows persistent blood but not RBC's Plan: VTE prophylaxis-IV therapeutic enoxaparin due to atrial arrhythmia Diet -regular Disposition -admit to [facility] telemetry Admission and Anticipated Discharge Date Admission Date: March 17, 2021 Subjective Patient continues to prone as much as able and he feels better after proning for most of the morning. His oxygen saturations are stable. He is with a productive cough Review of Systems Review of Systems: Moderate distress and fatigue no headache, no visual changes no speech or swallowing issues no chest pain, pressure or palpitations Continue shortness of breath, nonproductive cough or wheezes no abdominal pain, nausea or vomiting, no diarrhea no dysuria, hematuria or frequency no focal joint pain or swelling no back pain, CVA tenderness or radicular pain no bruising, bleeding or rashes no focal signs of weakness or numbness or altered sensation no complaints of anxiety or depression.. Physical Exam Physical Exam: The patient appeared mild to moderate respiratory distress Vital signs as documented. Head exam is normocephalic atraumatic Neck is without JVD, thyromegaly, or carotid bruits. Lungs are coarse bilaterally in all lung chapa tachypnea Cardiac exam, Rhythm is regular.. No murmurs, rubs or gallops. Abdominal exam reveals normal bowel sounds, soft non tender, no masses Extremities are nonedematous and both pedal pulses are present Neurologic exam is alert and oriented, no focal loss of strength or sensation Skin is without bruises or rashes Psychologically is without concerns for anxiety or depression.. Results & Data Results & Data ([facility]) Vital Signs (Past 12 Hours) Vital Signs Temp Pulse Pulse Resp BP Pulse Ox 03/20/21 18:30 82 03/20/21 16:53 98.2 F 80 17 117/72 93 03/20/21 11:54 98.2 F 81 17 99/62 L 95 PG Care Time/CCT Total # of Minutes Spent Total Time Spent with Patient: Total time spent is greater than 50% in coordination of care (as documented) at patient's floor/unit and/or counseling patient: Coding Level of Care Code 33904 Subseq Hosp Care Lvl 3 Diagnoses Acute respiratory failure with hypoxia J96.01 Pneumonia due to COVID-19 virus U07.1; J12.82 Atrial fibrillation with rapid ventricular response I48.91 Acute congestive heart failure I50.9 Proteinuria R80.9
[2021-03-21] MEDS ORDERED: FUROSEMIDE INJ 20 MG/2 ML VIAL IV SCH (07:30)
[2021-03-21] MEDS: INSULIN ASPART PER UNIT SC SCH ×4 (08:30→21:00)
[2021-03-21] MEDS: dexAMETHasone 6 MG in SYRINGE 0 ML IV SCH (08:39)
[2021-03-21] MEDS: ENOXAPARIN 100 MG/1ML SYR SQ SCH ×2 (08:39→20:50)
[2021-03-21] MEDS: METOPROLOL TARTRATE 25 MG TAB PO SCH ×2 (08:40→20:50)
[2021-03-21] MEDS: ASCORBIC ACID 500 MG TAB PO SCH (08:40)
--- NOTE | 2021-03-21 17:22 | Hospitalist Progress Note ---
Date of Service March 21, 2021 Assessment & Plan (1) Acute respiratory failure with hypoxia: Plan: Secondary to COVID-19 pneumonia +/-mild heart failure preserved ejection fraction from rate related atrial fibrillation Aim O2 sats > 90%, will move to vapotherm if needed (2) Pneumonia due to COVID-19 virus: Plan: Unvaccinated. No prior COVID. Started on Dexamethasone 6mg IV 03/15 Given day 10 of illness out of time frame remdesivir this time. CRP to low for baricitinib (3) Atrial fibrillation with rapid ventricular response: Plan: Likely related to stressor of illness and possibly covid affect on heart, converted to sinus rhythm 03/20/21` Start metoprolol tartrate 25 mg p.o. twice daily Anticoagulation with IV heparin standard with bolus. transitioned to lovenox will keep anticoagulated for one month TTE echocardiogram performed 1211 shows moderate concentric LVH, EF 50 to 55% dilated right ventricle with normal right ventricular function no significant valvular abnormalities TSH normal 03/18/21 (4) Acute congestive heart failure: Plan: Suspect just from rate related atrial fibrillation Lasix 40 mg IV TTE shows preserved EF , hfpef (5) Proteinuria: Plan: Will need follow up in 4 to 6 weeks to repeat this. urine without red blood cells concerning for myoglobinuria. elevated CK, but down trending concern if myositis from covid repeat ua for blood and rbc , shows persistent blood but not RBC's Plan: VTE prophylaxis-IV therapeutic enoxaparin due to atrial arrhythmia Diet -regular Disposition -continues on med telemetry Admission and Anticipated Discharge Date Admission Date: March 17, 2021 Subjective Patient continues to prone as much as able and he feels better after proning he has had mild excalation of oxygen need, but now is outside the window for Baricitinib. on the edge of moving to vapotherm, did have some lasix today Review of Systems Review of Systems: Moderate distress and fatigue no headache, no visual changes no speech or swallowing issues no chest pain, pressure or palpitations Continue shortness of breath, nonproductive cough or wheezes no abdominal pain, nausea or vomiting, no diarrhea no dysuria, hematuria or frequency no focal joint pain or swelling no back pain, CVA tenderness or radicular pain no bruising, bleeding or rashes no focal signs of weakness or numbness or altered sensation no complaints of anxiety or depression.. Physical Exam Physical Exam: The patient appeared mild to moderate respiratory distress Vital signs as documented. Head exam is normocephalic atraumatic Neck is without JVD, thyromegaly, or carotid bruits. Lungs are coarse bilaterally in all lung chapa tachypnea Cardiac exam, Rhythm is regular.. No murmurs, rubs or gallops. Abdominal exam reveals normal bowel sounds, soft non tender, no masses Extremities are nonedematous and both pedal pulses are present Neurologic exam is alert and oriented, no focal loss of strength or sensation Skin is without bruises or rashes Psychologically is without concerns for anxiety or depression. Results & Data Results & Data ([facility]) Vital Signs (Past 12 Hours) Vital Signs Temp Pulse Pulse Resp BP Pulse Ox 03/21/21 15:37 63 03/21/21 15:23 68 22 91 03/21/21 12:14 99.9 F H 90 18 112/68 97 03/21/21 07:59 98.2 F 72 20 102/60 94 03/21/21 07:11 64 PG Care Time/CCT Total # of Minutes Spent Total Time Spent with Patient: Total time spent is greater than 50% in coordination of care (as documented) at patient's floor/unit and/or counseling patient: Coding Level of Care Code 63646 Subseq Hosp Care Lvl 3 Diagnoses Acute respiratory failure with hypoxia J96.01 Pneumonia due to COVID-19 virus U07.1; J12.82 Atrial fibrillation with rapid ventricular response I48.91 Acute congestive heart failure I50.9 Proteinuria R80.9
[2021-03-22 07:44] LABS: Basophils # (auto) 0.01 K/uL (0-0.2); Basophils % (auto) 0.1 %; Eosinophils # (auto) 0.05 K/uL (0-0.5); Eosinophils % (auto) 0.6 %; Hematocrit (blood only) 46.3 % (42-52); Hemoglobin 15.4 g/dL (14.0-18.0); Immature Granulocytes # (auto) 0.05 K/uL (0.00-0.02); Immature Granulocytes % (auto) 0.6 %; Lymphocytes # (auto) 0.57 K/uL (1.2-3.4); Lymphocytes % (auto) 6.5 %; Mean Corpuscular Hgb Conc 33.3 g/dL (32-36); Mean Corpuscular Volume 90.1 fL (80-100); Mean Platelet Volume 9.9 fL (7.4-10.4); Monocytes # (auto) 0.25 K/uL (0.11-0.59); Monocytes % (auto) 2.8 %; Neutrophils % (auto) 89.4 %; Platelet Count 340 K/uL (130-400); RDW Coefficient of Variation 12.5 % (11.5-14.5); RDW Standard Deviation 41.4 fL (36.4-46.3); Red Blood Count 5.14 M/uL (4.7-6.1); White Blood Count 8.83 K/uL (4.8-10.8)
[2021-03-22] MEDS: INSULIN ASPART PER UNIT SC SCH ×4 (08:04→21:16)
[2021-03-22] MEDS: ENOXAPARIN 100 MG/1ML SYR SQ SCH ×2 (08:20→20:59)
[2021-03-22] MEDS: FUROSEMIDE INJ 20 MG/2 ML VIAL IV SCH (08:20)
[2021-03-22] MEDS: METOPROLOL TARTRATE 25 MG TAB PO SCH ×2 (08:20→21:01)
[2021-03-22] MEDS: ASCORBIC ACID 500 MG TAB PO SCH (08:20)
[2021-03-22] MEDS: dexAMETHasone 20 MG in DEXTROSE 5% 25 ML IV SCH (08:21)
[2021-03-22] MEDS ORDERED: dexAMETHasone 20 MG in SYRINGE 0 ML IV SCH (09:00)
[2021-03-22 09:10] LABS: Hepatitis B Surf Ag Rflx Conf Neg (Neg)
[2021-03-22 09:38] LABS: Hepatitis C IgG 13Yrs+Old_Rflx Neg (Neg)
[2021-03-22 14:37] LABS: Total Protein 24 Hour Urine 910.5 mg/24 Hr (0-149.1); Urine Total Protein 60.7 mg/dl
--- NOTE | 2021-03-22 18:52 | Hospitalist Progress Note ---
Date of Service March 22, 2021 Assessment & Plan (1) Acute respiratory failure with hypoxia: Plan: Secondary to COVID-19 pneumonia +/-mild heart failure preserved ejection fraction from rate related atrial fibrillation Aim O2 sats > 90%, will move to vapotherm if needed (2) Pneumonia due to COVID-19 virus: Plan: Unvaccinated. No prior COVID. Started on Dexamethasone 6mg IV 03/15, changed to 20 mg daily x 5 d then 10 x 5 d, Given day 10 of illness out of time frame remdesivir this time. CRP to low for baricitinib lasix 20 mg started daily (3) Atrial fibrillation with rapid ventricular response: Plan: Likely related to stressor of illness and possibly covid affect on heart, converted to sinus rhythm 03/20/21` Start metoprolol tartrate 25 mg p.o. twice daily Anticoagulation with IV heparin standard with bolus. transitioned to lovenox will keep anticoagulated for one month TTE echocardiogram performed 1211 shows moderate concentric LVH, EF 50 to 55% dilated right ventricle with normal right ventricular function no significant valvular abnormalities TSH normal 03/18/21 (4) Acute congestive heart failure: Plan: Suspect just from rate related atrial fibrillation Lasix 20 mg iv daily TTE shows preserved EF , hfpef (5) Proteinuria: Plan: Will need follow up in 4 to 6 weeks to repeat this. urine without red blood cells concerning for myoglobinuria. elevated CK, but down trending concern if myositis from covid repeat ua for blood and rbc , shows persistent blood but not RBC's 24 hour urine for protein, send out serology consider follow up with nephrology Plan: VTE prophylaxis-IV therapeutic enoxaparin due to atrial arrhythmia Diet -regular Disposition -continues on med telemetry Admission and Anticipated Discharge Date Admission Date: March 17, 2021 Subjective Patient continues to prone as much as able and he feels better after proning he has had mild excalation of oxygen need, but now is outside the window for Baricitinib. started on high flow increase steroids and start daily lasix Review of Systems Review of Systems: Moderate distress and fatigue no headache, no visual changes no speech or swallowing issues no chest pain, pressure or palpitations Continue shortness of breath, nonproductive cough or wheezes no abdominal pain, nausea or vomiting, no diarrhea no dysuria, hematuria or frequency no focal joint pain or swelling no back pain, CVA tenderness or radicular pain no bruising, bleeding or rashes no focal signs of weakness or numbness or altered sensation no complaints of anxiety or depression.. Physical Exam Physical Exam: The patient appeared mild to moderate respiratory distress Vital signs as documented. Head exam is normocephalic atraumatic Neck is without JVD, thyromegaly, or carotid bruits. Lungs are coarse bilaterally in all lung chapa tachypnea Cardiac exam, Rhythm is regular.. No murmurs, rubs or gallops. Abdominal exam reveals normal bowel sounds, soft non tender, no masses Extremities are nonedematous and both pedal pulses are present Neurologic exam is alert and oriented, no focal loss of strength or sensation Skin is without bruises or rashes Psychologically is without concerns for anxiety or depression. Results & Data Results & Data ([facility]) Vital Signs (Past 12 Hours) Vital Signs Temp Pulse Pulse Resp BP Pulse Ox 03/22/21 16:16 98.2 F 56 L 18 108/56 L 95 03/22/21 15:47 76 03/22/21 15:38 62 22 97 03/22/21 11:58 98.6 F 65 18 97/54 L 88 L 03/22/21 08:13 97.9 F 67 18 93/44 L 89 L 03/22/21 07:15 88 22 91 PG Care Time/CCT Total # of Minutes Spent Total Time Spent with Patient: Total time spent is greater than 50% in coordination of care (as documented) at patient's floor/unit and/or counseling patient: Coding Level of Care Code 76608 Subseq Hosp Care Lvl 3 Diagnoses Acute respiratory failure with hypoxia J96.01 Pneumonia due to COVID-19 virus U07.1; J12.82 Atrial fibrillation with rapid ventricular response I48.91 Acute congestive heart failure I50.9 Proteinuria R80.9
[2021-03-22] MEDS ORDERED: QUEtiapine FUMARATE 25 MG TABLET PO SCH (21:00)
[2021-03-23] MEDS: ENOXAPARIN 100 MG/1ML SYR SQ SCH ×2 (07:59→19:45)
[2021-03-23] MEDS: ASCORBIC ACID 500 MG TAB PO SCH (08:06)
[2021-03-23] MEDS: INSULIN ASPART PER UNIT SC SCH ×4 (08:16→21:29)
[2021-03-23] MEDS: dexAMETHasone 20 MG in DEXTROSE 5% 25 ML IV SCH (08:56)
[2021-03-23] MEDS: FUROSEMIDE INJ 20 MG/2 ML VIAL IV SCH (09:00)
[2021-03-23] MEDS: METOPROLOL TARTRATE 25 MG TAB PO SCH ×2 (09:03→19:46)
[2021-03-23 12:43] LABS: Albumin Level 2.3 gm/dl (3.4-5.0); BUN Creatinine Ratio 27.2 (10-20); Calcium 9.1 mg/dl (8.5-10.1); Creatinine Clr Calc Pharmacy 109.8 ml/min; Est GFR (African American) 113.5 ml/min; Est GFR (Non-African American) 97.9 ml/min; Potassium 3.9 mmol/L (3.5-5.1)
[2021-03-23 12:45] LABS: Total Protein 7.7 gm/dl (6.4-8.2)
--- NOTE | 2021-03-23 12:58 | Hospitalist Progress Note ---
Date of Service March 23, 2021 Assessment & Plan (1) Acute respiratory failure with hypoxia: Plan: Secondary to COVID-19 pneumonia +/-mild heart failure preserved ejection fraction from rate related atrial fibrillation Aim O2 sats > 90%, did move high flow on 03/22/21 (2) Pneumonia due to COVID-19 virus: Plan: Unvaccinated. No prior COVID. Started on Dexamethasone 6mg IV 03/15, changed to 20 mg daily x 5 d(ld 03/26) then 10 x 5 d (ld 04/01), Given day 10 of illness out of time frame remdesivir this time. CRP to low for baricitinib lasix 20 mg started daily 03/22/21 (3) Atrial fibrillation with rapid ventricular response: Plan: Likely related to stressor of illness and possibly covid affect on heart, converted to sinus rhythm 03/20/21` Start metoprolol tartrate 25 mg p.o. twice daily Anticoagulation with IV heparin standard with bolus. transitioned to lovenox will keep anticoagulated for one month TTE echocardiogram performed 1210 shows moderate concentric LVH, EF 50 to 55% dilated right ventricle with normal right ventricular function no significant valvular abnormalities TSH normal 03/18/21 (4) Acute congestive heart failure: Plan: Suspect just from rate related atrial fibrillation Lasix 20 mg iv daily TTE shows preserved EF , hfpef (5) Proteinuria: Plan: Will need follow up in 4 to 6 weeks to repeat this. urine without red blood cells concerning for myoglobinuria. elevated CK, but down trending concern if myositis from covid repeat ua for blood and rbc , shows persistent blood but not RBC's 24 hour urine for protein shows 900 mg/24 hours , send out serology ask for nephrology consult Plan: VTE prophylaxis-sc therapeutic enoxaparin due to atrial arrhythmia Diet -regular Disposition -continues on med telemetry Admission and Anticipated Discharge Date Admission Date: March 17, 2021 Subjective Patient continues to prone as much as able and he feels better after proning he has had mild excalation of oxygen need, but now is outside the window for Baricitinib. high flow increased steroids and started on daily lasix Review of Systems Review of Systems: Moderate distress and fatigue no headache, no visual changes no speech or swallowing issues no chest pain, pressure or palpitations Continue shortness of breath, nonproductive cough or wheezes no abdominal pain, nausea or vomiting, no diarrhea no dysuria, hematuria or frequency no focal joint pain or swelling no back pain, CVA tenderness or radicular pain no bruising, bleeding or rashes no focal signs of weakness or numbness or altered sensation no complaints of anxiety or depression.. Physical Exam Physical Exam: The patient appeared mild to moderate respiratory distress Vital signs as documented. Head exam is normocephalic atraumatic Neck is without JVD, thyromegaly, or carotid bruits. Lungs are coarse bilaterally in all lung chapa tachypnea Cardiac exam, Rhythm is regular.. No murmurs, rubs or gallops. Abdominal exam reveals normal bowel sounds, soft non tender, no masses Extremities are nonedematous and both pedal pulses are present Neurologic exam is alert and oriented, no focal loss of strength or sensation Skin is without bruises or rashes Psychologically is without concerns for anxiety or depression. Results & Data Results & Data ([facility]) Vital Signs (Past 12 Hours) Vital Signs Temp Pulse Pulse Resp BP Pulse Ox 03/23/21 12:14 98.2 F 61 18 88/48 L 95 03/23/21 10:44 77 20 89 L 03/23/21 08:22 99.5 F 68 22 102/65 90 03/23/21 04:46 53 L 03/23/21 03:00 97.9 F 60 17 98/53 L 85 L 03/23/21 02:11 49 L 18 93 PG Care Time/CCT Total # of Minutes Spent Total Time Spent with Patient: Total time spent is greater than 50% in coordination of care (as documented) at patient's floor/unit and/or counseling patient: Coding Level of Care Code 21549 Subseq Hosp Care Lvl 3 Diagnoses Acute respiratory failure with hypoxia J96.01 Pneumonia due to COVID-19 virus U07.1; J12.82 Atrial fibrillation with rapid ventricular response I48.91 Acute congestive heart failure I50.9 Proteinuria R80.9
--- NOTE | 2021-03-23 16:34 | Nephrology Consultation ---
Date of Consultation March 23, 2021 Assessment & Plan (1) Proteinuria: * COVID infection has been associated both glomerular and tubular renal injury. Presentation includes REMI, hematuria, proteinuria and nephrotic syndrome. Biopsy of severely affected individuals have been reported to d isplay ATN or FSGS. Patient's urine sediment is currently non-nephritic. His kidney function is well preserved. His low grade isolated proteinuria likely represents direct glomerular injury related to COVID infection. Management at this time remains supportive. Relative hypotension precludes the use of DAREN inhibitor therapy. Agree with ordering serologic studies to assess for vasculitis. Recommend Nephrology outpatient follow up 6 weeks following hospital discharge to reassess kidney function and proteinuria. Patient should complete a CMP, CBC and urinalysis w/ UPCR 2 days prior to visit. Please call if further assistance is needed. (2) Pneumonia due to COVID-19 virus: History of Present Illness Reason for Consultation: Proteinuria Attending Physician: Brock Keen MD History of Present Illness Mr. Wadsworth is a 50 year old white male who is evaluated at the request of Dr. Keen due to isolated proteinuria. Physical exam was withheld as patient is currently on respiratory isolation for COVID pneumonia. Medical records in the EMR were reviewed today and are summarized as follows: Mr. Wadsworth has a h/o IGT and hypertriglyceridemia. He has otherwise enjoyed good health and has never required Nephrology evaluation in the past. Mr. Wadsworth is unvaccinated for COVID. He was admitted to [facility] 03/17/21 with COVID pneumonia. Remdesivir was held due to late presentation. Mr. Wadsworth received Dexamethasone therapy. His hospitalization has been complicated by the development of myositis (elevated CPK, hematuria by chemical analysis but negative microscopy) and new onset atrial fibrillation. Urinalysis was + for protein. 24 hour urine collection quantitated this at 910 mg. Kidney function remains well preserved w/ stable Cr of 0.9 Allergies Allergy/AdvReac Type Severity Reaction Status Date / Time No Known Drug Allergies Allergy Verified 03/17/21 11:01 Home Medications Medication Instructions Recorded Confirmed Type ascorbic acid (vitamin C) 500 mg 500 mg PO DAILY 03/15/21 03/17/21 History tablet (Vitamin C) dexamethasone 6 mg tablet 6 mg PO DAILY #7 tab 03/15/21 03/17/21 Rx (Decadron) zinc 50 mg tablet 50 mg PO DAILY 03/15/21 03/17/21 History Patient History Medical History Contact dermatitis Elevated blood pressure reading in office without diagnosis of hypertension Hypertriglyceridemia, sporadic Impaired glucose metabolism Laceration of fifth finger, left, complicated Laceration of fifth finger, left, complicated Metabolic syndrome Open fracture of distal phalanx of fifth finger of left hand Post-operative pain Surgical History History of shoulder replacement partial left History of surgical amputation of finger of left hand pinky finger left hand History of tooth extraction History of wisdom tooth extraction Family History Father Dyslipidemia Mother Dyslipidemia Grandfather Prostate cancer Denies family history of Ovarian cancer Myocardial infarction Breast cancer Colorectal cancer Social History Smoking Status: Never smoker Second Hand Exposure: No; Hx Alcohol Use: Yes Alcohol type: beer Hx Substance Use: No Preferred Language: Scottish Communication Ability: Effective Visual Impairment: No Limitations Hearing Ability: Normal Surveillance Sensor Officer Required: No Beliefs That Will Affect Care: None marital status: Current Living Situation: Spouse Current Living Situation Comment: and children current occupational status: employed current occupation: [employer] Feels Safe at Home: Yes Childhood Exposure to Second-Hand Smoke: Yes caffeine: No during the past year weight has: decreased > 10 lbs Dental Care, Regularly: No Physical Activity Frequency: Daily Seatbelt Use: always Sunscreen Use: Yes Assistive Devices: Oxygen - Continuous Physical Exam Physical Exam: Withheld due to respiratory isolation for COVID pneumonia Results & Data ([facility] Vital Signs (Past 12 Hours) Vital Signs Temp Pulse Pulse Resp BP Pulse Ox 03/23/21 15:16 20 96 03/23/21 12:14 36.8 C 61 18 88/48 L 95 03/23/21 10:44 77 20 95 03/23/21 08:22 37.5 C 68 22 102/65 90 03/23/21 04:46 53 L Laboratory Results Laboratory Tests 03/17/21 03/19/21 03/20/21 10:58 08:17 Unknown WBC Hgb Hct Plt Count Sodium Potassium Chloride Carbon Dioxide BUN Creatinine Est GFR (Non-Af Amer) Glucose Calcium Total Creatine Kinase 3164 H 2330 H Albumin Urine Color Dark Yellow Urine Appearance Clear Urine pH 6.0 Ur Specific [place] 1.033 H Urine Protein 3+ H Urine Blood 3+ H Urine WBC (Auto) 1-5 Urine RBC (Auto) 0-4 Ur Total Protein 24 Hr 03/22/21 03/22/21 03/23/21 07:19 12:30 12:02 WBC 8.83 Hgb 15.4 Hct 46.3 Plt Count 340 Sodium 138 Potassium 3.9 Chloride 101 Carbon Dioxide 32 BUN 25 H Creatinine 0.91 Est GFR (Non-Af Amer) 97.9 Glucose 138 H Calcium 9.1 Total Creatine Kinase Albumin 2.3 L Urine Color Urine Appearance Urine pH Ur Specific [place] Urine Protein Urine Blood Urine WBC (Auto) Urine RBC (Auto) Ur Total Protein 24 Hr 910.5 H PG Care Time/CCT Total # of Minutes Spent Total Time Spent with Patient: Total time spent is greater than 50% in coordination of care (as documented) at patient's floor/unit and/or counseling patient: Coding Level of Care Code 64342 Inpt Consult Level 5 Diagnoses Proteinuria R80.9 Pneumonia due to COVID-19 virus U07.1; J12.82
[2021-03-23] MEDS ORDERED: MELATONIN 3 MG TAB PO ONE (19:27)
[2021-03-23] MEDS ORDERED: MELATONIN 3 MG TAB PO SCH (21:00)
[2021-03-24 08:13] LABS: Basophils # (auto) 0.02 K/uL (0-0.2); Basophils % (auto) 0.2 %; Eosinophils # (auto) 0.13 K/uL (0-0.5); Eosinophils % (auto) 1.3 %; Hemoglobin 15.9 g/dL (14.0-18.0); Immature Granulocytes # (auto) 0.16 K/uL (0.00-0.02); Immature Granulocytes % (auto) 1.6 %; Lymphocytes # (auto) 0.84 K/uL (1.2-3.4); Lymphocytes % (auto) 8.7 %; Mean Corpuscular Hemoglobin 30.5 pg (25-34); Mean Corpuscular Hgb Conc 33.8 g/dL (32-36); Mean Corpuscular Volume 90.2 fL (80-100); Mean Platelet Volume 10.3 fL (7.4-10.4); Monocytes # (auto) 0.61 K/uL (0.11-0.59); Monocytes % (auto) 6.3 %; Neutrophils # (auto) 7.94 K/uL (1.4-6.5); Neutrophils % (auto) 81.9 %; Platelet Count 392 K/uL (130-400); RDW Coefficient of Variation 12.5 % (11.5-14.5); Red Blood Count 5.21 M/uL (4.7-6.1)
[2021-03-24 08:38] LABS: BUN Creatinine Ratio 29.1 (10-20); Calcium 8.9 mg/dl (8.5-10.1); Est GFR (African American) 105.1 ml/min; Est GFR (Non-African American) 90.7 ml/min; Potassium 4.3 mmol/L (3.5-5.1)
[2021-03-24] MEDS: ENOXAPARIN 100 MG/1ML SYR SQ SCH ×2 (08:59→20:25)
[2021-03-24] MEDS: ASCORBIC ACID 500 MG TAB PO SCH (09:01)
[2021-03-24] MEDS: INSULIN ASPART PER UNIT SC SCH ×4 (09:01→21:35)
[2021-03-24] MEDS: METOPROLOL TARTRATE 25 MG TAB PO SCH ×2 (09:05→20:37)
[2021-03-24] MEDS: FUROSEMIDE INJ 20 MG/2 ML VIAL IV SCH (09:10)
[2021-03-24] MEDS: dexAMETHasone 20 MG in DEXTROSE 5% 25 ML IV SCH (09:34)
--- NOTE | 2021-03-24 14:15 | Hospitalist Progress Note ---
Date of Service March 24, 2021 Assessment & Plan (1) Acute respiratory failure with hypoxia: Plan: Secondary to COVID-19 pneumonia +/-mild heart failure preserved ejection fraction from rate related atrial fibrillation Aim O2 sats > 90%, did move high flow on 03/22/21 (2) Pneumonia due to COVID-19 virus: Plan: Unvaccinated. No prior COVID. Started on Dexamethasone 6mg IV 03/15, changed to 20 mg daily x 5 d(ld 03/26) then 10 x 5 d (ld 04/01), Given day 10 of illness out of time frame remdesivir this time. CRP to low for baricitinib lasix 20 mg started daily 03/22/21 (3) Atrial fibrillation with rapid ventricular response: Plan: Likely related to stressor of illness and possibly covid affect on heart, converted to sinus rhythm 03/20/21` Start metoprolol tartrate 25 mg p.o. twice daily Anticoagulation with IV heparin standard with bolus. transitioned to lovenox will keep anticoagulated for one month TTE echocardiogram performed 03/18 shows moderate concentric LVH, EF 50 to 55% dilated right ventricle with normal right ventricular function no significant valvular abnormalities TSH normal 03/18/21 (4) Acute congestive heart failure: Plan: Suspect just from rate related atrial fibrillation Lasix 20 mg iv daily TTE shows preserved EF , hfpef (5) Proteinuria: Plan: Will need follow up in 4 to 6 weeks to repeat this. urine without red blood cells concerning for myoglobinuria. elevated CK, but down trending concern if myositis from covid repeat ua for blood and rbc , shows persistent blood but not RBC's 24 hour urine for protein shows 900 mg/24 hours , send out serology ask for nephrology consult Plan: VTE prophylaxis-sc therapeutic enoxaparin due to atrial arrhythmia Diet -regular Disposition -continues on med telemetry Admission and Anticipated Discharge Date Admission Date: March 17, 2021 Subjective Patient continues to prone as much as able and he feels better after proning he has had mild excalation of oxygen need, but now is outside the window for Baricitinib. high flow increased steroids Review of Systems Review of Systems: Moderate distress and fatigue no headache, no visual changes no speech or swallowing issues no chest pain, pressure or palpitations Continue shortness of breath, nonproductive cough or wheezes no abdominal pain, nausea or vomiting, no diarrhea no dysuria, hematuria or frequency no focal joint pain or swelling no back pain, CVA tenderness or radicular pain no bruising, bleeding or rashes no focal signs of weakness or numbness or altered sensation no complaints of anxiety or depression.. Physical Exam Physical Exam: The patient appeared mild to moderate respiratory distress Vital signs as documented. Head exam is normocephalic atraumatic Neck is without JVD, thyromegaly, or carotid bruits. Lungs are coarse bilaterally in all lung chapa tachypnea Cardiac exam, Rhythm is regular.. No murmurs, rubs or gallops. Abdominal exam reveals normal bowel sounds, soft non tender, no masses Extremities are nonedematous and both pedal pulses are present Neurologic exam is alert and oriented, no focal loss of strength or sensation Skin is without bruises or rashes Psychologically is without concerns for anxiety or depression. Results & Data Results & Data ([facility]) Vital Signs (Past 12 Hours) Vital Signs Temp Pulse Pulse Resp BP Pulse Ox 03/24/21 12:08 97.9 F 55 L 20 102/57 L 91 03/24/21 10:33 77 18 91 03/24/21 07:35 45 L 03/24/21 07:28 57 L 18 95 03/24/21 07:16 98.8 F 60 18 96/56 L 95 03/24/21 04:05 98.2 F 48 L 18 88/55 L 88 L 03/24/21 03:19 57 L 18 91 PG Care Time/CCT Total # of Minutes Spent Total Time Spent with Patient: Total time spent is greater than 50% in coordination of care (as documented) at patient's floor/unit and/or counseling patient: Coding Level of Care Code 77037 Subseq Hosp Care Lvl 2 Diagnoses Acute respiratory failure with hypoxia J96.01 Pneumonia due to COVID-19 virus U07.1; J12.82 Atrial fibrillation with rapid ventricular response I48.91 Acute congestive heart failure I50.9 Proteinuria R80.9
[2021-03-24] MEDS: MELATONIN 3 MG TAB PO SCH (20:36)
[2021-03-24] MEDS ORDERED: ATROPINE SO4 1 MG/ML 1ML VIAL IV STA (23:28)
[2021-03-24] MEDS ORDERED: ATROPINE SO4 1 MG/ML 1ML VIAL ONE (23:39)
[2021-03-25] MEDS ORDERED: ATROPINE SO4 1 MG/ML 1ML VIAL IV STA (00:02)
[2021-03-25] MEDS ORDERED: ATROPINE SULFATE 0.1 MG/ML 10ML SYR IV STA (00:05)
[2021-03-25 06:37] LABS: Hematocrit (blood only) 45.4 % (42-52); Hemoglobin 15.1 g/dL (14.0-18.0); Mean Corpuscular Hemoglobin 30.2 pg (25-34); Mean Corpuscular Hgb Conc 33.3 g/dL (32-36); Mean Corpuscular Volume 90.8 fL (80-100); Mean Platelet Volume 10.1 fL (7.4-10.4); Platelet Count 415 K/uL (130-400); RDW Coefficient of Variation 12.5 % (11.5-14.5); RDW Standard Deviation 41.3 fL (36.4-46.3); White Blood Count 10.44 K/uL (4.8-10.8)
[2021-03-25 07:09] LABS: BUN Creatinine Ratio 25.5 (10-20); Calcium 8.8 mg/dl (8.5-10.1); Creatinine Clr Calc Pharmacy 117.5 ml/min; Est GFR (African American) 117.8 ml/min; Est GFR (Non-African American) 101.6 ml/min; Potassium 4.1 mmol/L (3.5-5.1)
[2021-03-25] MEDS: INSULIN ASPART PER UNIT SC SCH ×4 (08:17→21:51)
[2021-03-25] MEDS: METOPROLOL TARTRATE 25 MG TAB PO SCH (08:17)
[2021-03-25] MEDS: dexAMETHasone 20 MG in DEXTROSE 5% 25 ML IV SCH (08:17)
[2021-03-25] MEDS: ASCORBIC ACID 500 MG TAB PO SCH (09:51)
[2021-03-25] MEDS: ENOXAPARIN 100 MG/1ML SYR SQ SCH ×2 (09:51→19:35)
--- NOTE | 2021-03-25 10:23 | Hospitalist Progress Note ---
Date of Service March 25, 2021 Assessment & Plan (1) Acute respiratory failure with hypoxia: Plan: Secondary to COVID-19 pneumonia +/-mild heart failure preserved ejection fraction from rate related atrial fibrillation Aim O2 sats > 90% was on high flow, now down to 8L, no distress, ambulating to toilet continue high dose dexamethasone give dose of Lasix 20mg IV again today, negative fluid balance since he is eating and drinking well move down to 3-4 L at rest and consider discharge (2) Pneumonia due to COVID-19 virus: Plan: Started on Dexamethasone 6mg IV 03/15, changed to 20 mg daily x 5 d(last day 03/26) then 10 x 5 d (ld 04/01), Given day 10 of illness out of time frame remdesivir this time. CRP to low for baricitinib lasix 20 mg started daily 03/22/21, continue this for neg fluid balance (3) Atrial fibrillation with rapid ventricular response: Plan: Likely related to stressor of illness and possibly covid affect on heart, converted to sinus rhythm 03/20/21` Started metoprolol tartrate 25 mg p.o. twice daily had bradycardia in the 30's when sleeping 03/24, got Atropine x 1 and moved to PCU hold metoprolol Anticoagulation with lovenox, will transition to Eliquis TTE echocardiogram performed 03/18 shows moderate concentric LVH, EF 50 to 55% dilated right ventricle with normal right ventricular function no significant valvular abnormalities TSH normal 03/18/21 (4) Acute congestive heart failure: Plan: Suspect just from rate related atrial fibrillation Lasix 20 mg iv daily TTE shows preserved EF , hfpef (5) Proteinuria: Plan: Will need follow up in 4 to 6 weeks to repeat this. urine without red blood cells concerning for myoglobinuria. elevated CK, but down trending concern if myositis from covid repeat ua for blood and rbc , shows persistent blood but not RBC's 24 hour urine for protein shows 900 mg/24 hours , send out serology ask for nephrology consult, appreciate their input Plan: VTE prophylaxis-sc therapeutic enoxaparin due to atrial arrhythmia Diet -regular Disposition -continues on med telemetry Admission and Anticipated Discharge Date Admission Date: March 17, 2021 Subjective patient doing well, comfortable on 8L HR dropped to 30's, got Atropine last night holding metoprolol for now, on monitor he is in 50's he is walking to toilet fine, had a BM, eating well, no fever can pull 2500mL on incentive spirometer he takes his oxygen off to walk to toilet, asked him to keep it on, takes him 5 minutes to recover when he gets back reviewed chart and labs Review of Systems Review of Systems: All systems reviewed & are unremarkable except as noted in Subjective Constitutional: no fever Respiratory: + cough, + dyspnea and + dyspnea on exertion; no sputum production Gastrointestinal: no abdominal pain, no nausea, no vomiting, no constipation and no diarrhea/loose stools Physical Exam Physical Exam: General: well developed, well nourished, no acute distress, comfortable Neck: supple, trachea midline, normal thyroid Lungs: clear to auscultation bilaterally, normal respiratory effort, no accessory muscle use, no distress Heart: bradycardic S1 and S2, no murmur, peripheral pulses normal, capillary refill normal, no edema Abdomen: soft, NT, ND, + BS, no hepatomegaly, normal to percussion Extremities: normal in appearance, no cyanosis, no petechiae, strength is 5/5 bilaterally Neuro: awake, cooperative, moves all extremities, no focal motor deficits, CN II-XII intact, sensation in extremities intact, normal speech Skin: warm, dry, no rash, normal turgor Psych: Awake, alert oriented x 3, euthymic affect Results & Data Results & Data ([facility]) Vital Signs (Past 12 Hours) Vital Signs Temp Pulse Pulse Resp BP Pulse Ox Pulse Ox 03/25/21 08:00 64 96 03/25/21 07:32 36.7 C 41 L 18 90/46 L 90 03/25/21 05:14 36.6 C 42 L 18 103/62 95 03/25/21 01:59 36.8 C 48 L 18 117/65 94 03/25/21 01:17 40 L 03/25/21 01:06 48 L 96/57 L 94 03/24/21 23:25 36.6 C 39 L 20 84/51 L 96 03/24/21 22:55 39 L 14 95 Laboratory Results Laboratory Results - last 24 hr 03/24/21 03/24/21 03/24/21 12:05 17:10 20:30 WBC RBC Hgb Hct MCV MCH MCHC RDW Std Deviation RDW Coeff of Rosalinda Plt Count MPV Sodium Potassium Chloride Carbon Dioxide Anion Gap BUN Creatinine Est Cr Clr Drug Dosing Est GFR ( Amer) Est GFR (Non-Af Amer) BUN/Creatinine Ratio Glucose POC Glucose 131 H 234 H 147 H Calcium 03/25/21 03/25/21 03/25/21 06:10 06:10 08:09 WBC 10.44 RBC 5.00 Hgb 15.1 Hct 45.4 MCV 90.8 MCH 30.2 MCHC 33.3 RDW Std Deviation 41.3 RDW Coeff of Rosalinda 12.5 Plt Count 415 H MPV 10.1 Sodium 139 Potassium 4.1 Chloride 104 Carbon Dioxide 29 Anion Gap 6.0 BUN 22 H Creatinine 0.85 Est Cr Clr Drug Dosing 117.5 Est GFR ( Amer) 117.8 Est GFR (Non-Af Amer) 101.6 BUN/Creatinine Ratio 25.5 H Glucose 109 H POC Glucose 116 H Calcium 8.8 Medications Administered Current Inpatient Medications Acetaminophen (Acetaminophen 325 Mg Tab) 650 mg PO Q4H PRN PRN Reason: Pain or Fever Stop: 04/16/21 16:24 Last Admin: 03/24/21 04:10 Dose: 650 mg Documented by: Ascorbic Acid (Ascorbic Acid 500 Mg Tab) 500 mg PO DAILY MARLENY Stop: 04/17/21 08:59 Last Admin: 03/25/21 09:51 Dose: 500 mg Documented by: Benzonatate (Benzonatate 100 Mg Capsule) 100 mg PO TID PRN PRN Reason: Cough Stop: 04/18/21 01:07 Dextromethorphan Polymer Complex (Dextromethorphan Polymr Complx 30 Mg/5 Ml Udp) 30 mg PO Q6H PRN PRN Reason: Cough Stop: 04/17/21 02:51 Last Admin: 03/24/21 09:18 Dose: 30 mg Documented by: Dextrose (Dextrose 50% 50 Ml Syringe) 25 - 50 ml IV UD PRN; Protocol PRN Reason: Hypoglycemia Protocol Stop: 04/16/21 16:24 Enoxaparin Sodium (Enoxaparin 100 Mg/1ml Syr) 90 mg SQ Q12H MARLENY Stop: 04/17/21 19:29 Last Admin: 03/25/21 09:51 Dose: 90 mg Documented by: Glucagon (Glucagon For Inj 1 Mg Vial) 1 mg SQ UD PRN; Protocol PRN Reason: Hypoglycemia Protocol Stop: 04/16/21 16:24 Glucose (Glucose 10 Tabs/Tube) 4 - 8 tabs PO UD PRN; Protocol PRN Reason: Hypoglycemia Protocol Stop: 04/16/21 16:24 Glucose (Glucose 40% Gel 15 Gm Tube) 15 - 30 gm PO UD PRN; Protocol PRN Reason: Hypoglycemia Protocol Stop: 04/16/21 16:24 Dexamethasone 20 mg/ Dextrose 30 mls @ 0.833 mls/min IV QAM MARLENY Stop: 03/29/21 08:59 Last Infusion: 03/25/21 08:32 Dose: Infused Documented by: Insulin Aspart (Insulin Aspart Per Unit) 0 units SC ACHS PENDING SALE TO [facility] Stop: 04/16/21 16:29 Last Admin: 03/25/21 08:17 Dose: Not Given Documented by: Melatonin (Melatonin 3 Mg Tab) 6 mg PO HS PENDING SALE TO [facility] Stop: 04/23/21 20:59 Last Admin: 03/24/21 20:36 Dose: 6 mg Documented by: Menthol (Cough Drop (Sugar Free) Shun 24 Shun/1 Box) 1 shun BUCCAL Q2H PRN PRN Reason: Sore Throat Stop: 04/18/21 01:06 Metoprolol Tartrate (Metoprolol Tartrate 25 Mg Tab) 25 mg PO BID PENDING SALE TO [facility] Stop: 04/16/21 20:59 Last Admin: 03/25/21 08:17 Dose: Not Given Documented by: Miscellaneous (Carbohydrates For Hypoglycemia ) 15 - 30 gm PO UD PRN PRN Reason: Hypoglycemia Protocol Stop: 04/16/21 16:24 Ondansetron HCl (Ondansetron Inj 2 Mg/Ml 2 Ml Vial) 4 mg IV Q6H PRN PRN Reason: Nausea Stop: 04/16/21 16:24 PG Care Time/CCT Total # of Minutes Spent Total Time Spent with Patient: Total time spent is greater than 50% in coordination of care (as documented) at patient's floor/unit and/or counseling patient: Coding Level of Care Code 75845 Subseq Hosp Care Lvl 2 Diagnoses Acute respiratory failure with hypoxia J96.01 Pneumonia due to COVID-19 virus U07.1; J12.82 Atrial fibrillation with rapid ventricular response I48.91 Acute congestive heart failure I50.9 Proteinuria R80.9
[2021-03-25] MEDS ORDERED: FUROSEMIDE INJ 20 MG/2 ML VIAL IV ONE (10:29)
[2021-03-25] MEDS ORDERED: FUROSEMIDE INJ 20 MG/2 ML VIAL IV SCH (10:29)
[2021-03-25] MEDS ORDERED: ALUMINUM/MAGNESIUM SUSP 30 ML UDC PO PRN (16:18)
[2021-03-25] MEDS: MELATONIN 3 MG TAB PO SCH (21:59)
--- NOTE | 2021-03-25 22:51 | Electrocardiogram Report ---
Test Reason : Blood Pressure : / mmHG Vent. Rate : 041 BPM Atrial Rate : 041 BPM P-R Int : 150 ms QRS Dur : 092 ms QT Int : 500 ms P-R-T Axes : 043 037 023 degrees QTc Int : 412 ms Marked sinus bradycardia with Premature atrial complexes Abnormal ECG When compared with ECG of 17-MAR-2021 10:46, Sinus rhythm has replaced Atrial fibrillation Vent. rate has decreased BY 58 BPM Nonspecific T wave abnormality, improved in Inferior leads Nonspecific T wave abnormality no longer evident in Anterolateral leads QT has shortened Confirmed by Gordy Morrell ([id number]) on 03/25/2021 10:51:16 PM Referred By: REFERRED SELF Confirmed By:Gordy Morrell
[2021-03-26 01:09] LABS: ANCA Screen Negative (Negative); Anti Nuclear Antibody Screen NEGATIVE (NEGATIVE); Complement C3 176 mg/dL (82-185); Complement Total(CH50) >60 U/mL (31-60); Hepatitis A Antibody IgM NON-REACTIVE (NON-REACTIVE); Hepatitis B Core Antibody IgM NON-REACTIVE (NON-REACTIVE)
[2021-03-26] MEDS: INSULIN ASPART PER UNIT SC SCH ×4 (08:30→20:45)
[2021-03-26] MEDS: ENOXAPARIN 100 MG/1ML SYR SQ SCH ×2 (09:17→20:30)
[2021-03-26] MEDS: ASCORBIC ACID 500 MG TAB PO SCH (09:17)
--- NOTE | 2021-03-26 09:30 | XRay Report ---
XR chest 1V portable HISTORY: 50 years-old Male hypoxia, COVID acute hypoxia. COVID Positive. COMPARISON: Chest radiograph 03/17/2021 TECHNIQUE: Portable AP view of the chest FINDINGS: Cardiomediastinal and hilar silhouettes are unchanged. Extensive left greater than right bilateral mi xed interstitial and alveolar opacities have progressively worsened from prior. No pneumothorax or la rge pleural effusion. No acute fracture. IMPRESSION: Progressively worsened left greater than right opacities compatible with viral pneumonia. ACT 112: Negative or not required by law. The above report was generated using voice recognition software. It may contain grammatical, syntax o r spelling errors. Electronically signed by: Miles Eng M.D. 03/26/2021 9:29 AM
[2021-03-26] MEDS: dexAMETHasone 20 MG in DEXTROSE 5% 25 ML IV SCH (09:58)
[2021-03-26] MEDS ORDERED: FUROSEMIDE INJ 20 MG/2 ML VIAL IV ONE (10:16)
--- NOTE | 2021-03-26 10:23 | Hospitalist Progress Note ---
Date of Service March 26, 2021 Assessment & Plan (1) Acute respiratory failure with hypoxia: Plan: Secondary to COVID-19 pneumonia +/-mild heart failure preserved ejection fraction from rate related atrial fibrillation Aim O2 sats > 90% he is on 5L today, no distress, ambulating to toilet CXR with increased infiltrates compared to 03/17 continue high dose dexamethasone, decrease to 10mg tomorrow Lasix 20mg IV daily for negative balance need to get him down to 3-4L to go home (2) Pneumonia due to COVID-19 virus: Plan: Started on Dexamethasone 6mg IV 03/15, changed to 20 mg daily x 5 d(last day 03/26) then 10 x 5 d (ld 04/01), too far along for Remdesivir at time of admission CRP to low for baricitinib lasix 20 mg started daily 03/22/21, continue this for neg fluid balance (3) Bradycardia: Plan: sinus bradycardia, 50's drops to the 30's at times when he is sleeping no pauses will ask cardiology to see him and evaluate metoprolol 25mg has been on hold since he got a dose in evening on 03/24 (4) Atrial fibrillation with rapid ventricular response: Plan: Likely related to stressor of illness and possibly covid affect on heart, converted to sinus rhythm 03/20/21` Started metoprolol tartrate 25 mg p.o. twice daily had bradycardia in the 30's when sleeping 03/24, got Atropine x 1 and moved to PCU continue to hold metoprolol, HR dropped to 30's briefly this morning Anticoagulation with lovenox, will transition to Eliquis on discharge TTE echocardiogram performed 03/18 shows moderate concentric LVH, EF 50 to 55% dilated right ventricle with normal right ventricular function no significant valvular abnormalities TSH normal 03/18/21 (5) Acute congestive heart failure: Plan: Suspect just from rate related atrial fibrillation Lasix 20 mg iv daily TTE shows preserved EF , hfpef (6) Proteinuria: Plan: Will need follow up in 4 to 6 weeks to repeat this. urine without red blood cells concerning for myoglobinuria. elevated CK, but down trending concern if myositis from covid repeat ua for blood and rbc , shows persistent blood but not RBC's 24 hour urine for protein shows 900 mg/24 hours , send out serology ask for nephrology consult, appreciate their input Plan: VTE prophylaxis-sc therapeutic enoxaparin due to atrial arrhythmia Diet -regular Disposition -continues on med telemetry consult cardiology, wean down to 2-3L and try to get home Admission and Anticipated Discharge Date Admission Date: March 17, 2021 Subjective patient is doing well, his main concern is that his HR drops to 30's, he is worried it is going to stop I assured him that we are here, HR in the 30's while sleeping is okay, as long as there are no pauses I told him I can have cardiology see him, he appreciated that I turned him down to 5L NC while I was in the room, feels fine, saturations > 90% eating well, making urine, had a BM yesterday, no fever, + dry cough Review of Systems Review of Systems: All systems reviewed & are unremarkable except as noted in Subjective Respiratory: + cough and + dyspnea on exertion; no dyspnea and no sputum production Cardiovascular: no chest pain Physical Exam Physical Exam: General: well developed, well nourished, no acute distress, comfortable Neck: supple, trachea midline, normal thyroid Lungs: clear to auscultation bilaterally, normal respiratory effort, no accessory muscle use, no distress Heart: bradycardic S1 and S2, no murmur, peripheral pulses normal, capillary refill normal, no edema Abdomen: soft, NT, ND, + BS, no hepatomegaly, normal to percussion Extremities: normal in appearance, no cyanosis, no petechiae, strength is 5/5 bilaterally Neuro: awake, cooperative, moves all extremities, no focal motor deficits, CN II-XII intact, sensation in extremities intact, normal speech Skin: warm, dry, no rash, normal turgor Psych: Awake, alert oriented x 3, euthymic affect Results & Data Results & Data ([facility]) Vital Signs (Past 12 Hours) Vital Signs Temp Pulse Resp BP BP Pulse Ox 03/26/21 07:15 36.5 C 50 L 18 95/62 L 92 03/26/21 05:34 95/64 L 03/26/21 03:43 36.7 C 56 L 20 99/63 L 94 03/26/21 01:47 36.5 C 49 L 18 97/49 L 93 Laboratory Results Laboratory Results - last 24 hr 03/22/21 03/25/21 03/25/21 07:19 11:51 17:02 POC Glucose 134 H 184 H [place] Screen NEGATIVE ANCA Negative Complement C3 176 Complement C4 36 Tot Complement (CH50) >60 H Hepatitis A IgM Ab NON-REACTIVE Hep B Core IgM Ab NON-REACTIVE 03/25/21 03/26/21 21:28 07:52 POC Glucose 182 H 85 [place] Screen ANCA Complement C3 Complement C4 Tot Complement (CH50) Hepatitis A IgM Ab Hep B Core IgM Ab Medications Administered Current Inpatient Medications Acetaminophen (Acetaminophen 325 Mg Tab) 650 mg PO Q4H PRN PRN Reason: Pain or Fever Stop: 04/16/21 16:24 Last Admin: 03/24/21 04:10 Dose: 650 mg Documented by: Al Hydrox/Mg Hydrox/Simethicone (Aluminum/Magnesium Susp 30 Ml Udc) 15 ml PO Q6H PRN PRN Reason: Indigestion Stop: 04/24/21 16:17 Ascorbic Acid (Ascorbic Acid 500 Mg Tab) 500 mg PO DAILY MARLENY Stop: 04/17/21 08:59 Last Admin: 03/26/21 09:17 Dose: 500 mg Documented by: Benzonatate (Benzonatate 100 Mg Capsule) 100 mg PO TID PRN PRN Reason: Cough Stop: 04/18/21 01:07 Dextromethorphan Polymer Complex (Dextromethorphan Polymr Complx 30 Mg/5 Ml Udp) 30 mg PO Q6H PRN PRN Reason: Cough Stop: 04/17/21 02:51 Last Admin: 03/24/21 09:18 Dose: 30 mg Documented by: Dextrose (Dextrose 50% 50 Ml Syringe) 25 - 50 ml IV UD PRN; Protocol PRN Reason: Hypoglycemia Protocol Stop: 04/16/21 16:24 Enoxaparin Sodium (Enoxaparin 100 Mg/1ml Syr) 90 mg SQ Q12H MARLENY Stop: 04/17/21 19:29 Last Admin: 03/26/21 09:17 Dose: 90 mg Documented by: Furosemide (Furosemide Inj 20 Mg/2 Ml Vial) 20 mg IV ONE ONE Stop: 03/26/21 10:17 Glucagon (Glucagon For Inj 1 Mg Vial) 1 mg SQ UD PRN; Protocol PRN Reason: Hypoglycemia Protocol Stop: 04/16/21 16:24 Glucose (Glucose 10 Tabs/Tube) 4 - 8 tabs PO UD PRN; Protocol PRN Reason: Hypoglycemia Protocol Stop: 04/16/21 16:24 Glucose (Glucose 40% Gel 15 Gm Tube) 15 - 30 gm PO UD PRN; Protocol PRN Reason: Hypoglycemia Protocol Stop: 04/16/21 16:24 Dexamethasone 20 mg/ Dextrose 30 mls @ 0.833 mls/min IV QAM [facility] Stop: 03/29/21 08:59 Last Admin: 03/26/21 09:58 Dose: 30 mls/min Documented by: Insulin Aspart (Insulin Aspart Per Unit) 0 units SC ACHS [facility] Stop: 04/16/21 16:29 Last Admin: 03/26/21 08:30 Dose: Not Given Documented by: Melatonin (Melatonin 3 Mg Tab) 6 mg PO HS [facility] Stop: 04/23/21 20:59 Last Admin: 03/25/21 21:59 Dose: Not Given Documented by: Menthol (Cough Drop (Sugar Free) Shun 24 Shun/1 Box) 1 shun [place] Q2H PRN PRN Reason: Sore Throat Stop: 04/18/21 01:06 Miscellaneous (Carbohydrates For Hypoglycemia ) 15 - 30 gm PO UD PRN PRN Reason: Hypoglycemia Protocol Stop: 04/16/21 16:24 Ondansetron HCl (Ondansetron Inj 2 Mg/Ml 2 Ml Vial) 4 mg IV Q6H PRN PRN Reason: Nausea Stop: 04/16/21 16:24 PG Care Time/CCT Total # of Minutes Spent Total Time Spent with Patient: Total time spent is greater than 50% in coordination of care (as documented) at patient's floor/unit and/or counseling patient: Coding Level of Care Code 29117 Subseq Hosp Care Lvl 3 Diagnoses Acute respiratory failure with hypoxia J96.01 Pneumonia due to COVID-19 virus U07.1; J12.82 Atrial fibrillation with rapid ventricular response I48.91 Acute congestive heart failure I50.9 Proteinuria R80.9 Bradycardia R00.1
--- NOTE | 2021-03-26 13:49 | Cardiology Consultation ---
Date of Consultation March 26, 2021 History of Present Illness Reason for Consultation: Atrial fibrillation with a rapid ventricular response upon admission now with sinus bradycardia Attending Physician: Javier Gutiérrez DO History of Present Illness The patient was admitted with symptoms of Covid and Covid pneumonia. Initially he was found to have atrial fibrillation with a rapid ventricular response and then converted back to sinus rhythm he is also had short bursts of paroxysmal atrial tachycardia. In reviewing his outpatient records his heart rates actually have been in the 70s and 80s when he seen his primary care provider. The longer he has been in the hospital initially receiving some doses of beta-blockers for his A. fib he has had progressive bradycardia. He has had rates as low as the high 30s and low 40s with sleep and during the day he is in the 50s and 60s. He does feel slightly washed out and fatigued and is more short of breath in addition his blood pressures have been running on the lower side. Before he came to the hospital he previously was hunting and he could hike in the [place] without significant shortness of breath. He never felt like he could not get his heart rate up with activity. He denies any increasing shortness of breath or chest tightness previous to his illness when walking in the [place]. He denies any lower extremity edema. Before his illness he was otherwise functional without any change in his functional capacity. 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 The rest of a complete review of systems is otherwise negative Allergies Allergy/AdvReac Type Severity Reaction Status Date / Time No Known Drug Allergies Allergy Verified 03/17/21 11:01 Home Medications Medication Instructions Recorded Confirmed Type ascorbic acid (vitamin C) 500 mg 500 mg PO DAILY 03/15/21 03/17/21 History tablet (Vitamin C) dexamethasone 6 mg tablet 6 mg PO DAILY #7 tab 03/15/21 03/17/21 Rx (Decadron) zinc 50 mg tablet 50 mg PO DAILY 03/15/21 03/17/21 History Patient History Medical History Contact dermatitis Elevated blood pressure reading in office without diagnosis of hypertension Hypertriglyceridemia, sporadic Impaired glucose metabolism Laceration of fifth finger, left, complicated Laceration of fifth finger, left, complicated Metabolic syndrome Open fracture of distal phalanx of fifth finger of left hand Post-operative pain Surgical History History of shoulder replacement partial left History of surgical amputation of finger of left hand pinky finger left hand History of tooth extraction History of wisdom tooth extraction Family History Father Dyslipidemia Mother Dyslipidemia Grandfather Prostate cancer Denies family history of Ovarian cancer Myocardial infarction Breast cancer Colorectal cancer Social History Smoking Status: Never smoker Second Hand Exposure: No; Hx Alcohol Use: Yes Alcohol type: beer Hx Substance Use: No Preferred Language: Azeri Communication Ability: Effective Visual Impairment: No Limitations Hearing Ability: Normal 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 Beliefs That Will Affect Care: None marital status: Current Living Situation: Spouse Current Living Situation Comment: and children current occupational status: employed current occupation: [employer] Feels Safe at Home: Yes Childhood Exposure to Second-Hand Smoke: Yes caffeine: No during the past year weight has: decreased > 10 lbs Dental Care, Regularly: No Physical Activity Frequency: Daily Seatbelt Use: always Sunscreen Use: Yes Assistive Devices: Oxygen - Continuous Results & Data ([facility]) Vital Signs (Past 12 Hours) Vital Signs Temp Pulse Pulse Resp BP BP Pulse Ox 03/26/21 12:10 36.5 C 59 L 20 91/59 L 93 03/26/21 08:00 45 L 03/26/21 07:15 36.5 C 50 L 18 95/62 L 92 03/26/21 05:34 95/64 L 03/26/21 03:43 36.7 C 56 L 20 99/63 L 94 03/26/21 01:47 36.5 C 49 L 18 97/49 L 93 Exam was not performed today as the history was obtained over the phone as the patient is in the Covid unit. His EKGs and echocardiogram were reviewed as well as his inpatient studies. I also reviewed his outpatient primary care visits. IMPRESSIONS: 1. New onset sinus bradycardia 2. History of relatively normal heart rates in the 80s and 90s as an outpatient 3. Admission for Covid and Covid pneumonia with secondary hypoxemia 4. Normal LV systolic function by echo this admission 5. Normal troponin 6. Atrial fibrillation with a rapid ventricular response upon admission with spontaneous conversion to sinus rhythm and short bursts of PAT The reason for his sinus bradycardia at this point is not completely clear especially in light of the fact that his heart rates prior to Covid were higher in sinus rhythm. It is possible he is very sensitive to beta-blockers and this is because some additional sinus slowing at this point. We have seen in some Covid patients that they have had significant sinus bradycardia after Covid exposure and the etiology is unclear. His TSH is low normal I would check a free T4. There is nothing to suggest high degree AV block but I would suggest a Lyme titer given the fact he is or has been hunting. As long as he is asymptomatic with regards to his heart rate there is no indication for pacemaker either temporary or long-term. Once he recovers from his Covid as an outpatient we can arrange to make sure that his heart rate appropriately goes up with exercise ruling out chronotropic incompetence. I think some of his weakness is likely a combination of his O2 requirement and his relatively low blood pressure. He has received additional doses of diuretics. I would recommend a BMP tomorrow just to make sure we have not decreased his intravascular volume too much. All of his police clerk was reviewed as well. I spent greater than 20 minutes reviewing his studies talking with the primary service and communicating with the patient via phone.
[2021-03-26] MEDS: MELATONIN 3 MG TAB PO SCH (23:12)
[2021-03-27] MEDS: ENOXAPARIN 100 MG/1ML SYR SQ SCH ×2 (06:49→18:37)
[2021-03-27 08:17] LABS: Lyme Ab IgG w/WB Rflx Negative (Negative)
[2021-03-27] MEDS: dexAMETHasone 20 MG in DEXTROSE 5% 25 ML IV SCH (08:17)
[2021-03-27] MEDS: ASCORBIC ACID 500 MG TAB PO SCH (08:18)
--- NOTE | 2021-03-27 08:23 | Cardiology Progress Note ---
Date of Service March 27, 2021 Assessment & Plan Admission and Anticipated Discharge Date Admission Date: March 17, 2021 Subjective Patient remains anxious over his heart rate. He continues to have some shortness of breath talking in sentences. He denies any chest pain or chest pressure. Today's visit was completed via phone and in discussion with the primary service. I spent 12 minutes completing the visit. Results & Data ([facility]) Vital Signs (Past 12 Hours) Vital Signs Temp Pulse Pulse Resp BP BP Pulse Ox 03/27/21 08:02 36.6 C 45 L 19 102/60 93 03/27/21 06:52 90 03/27/21 05:21 94 03/27/21 04:30 92 03/27/21 03:34 37.0 C 67 19 105/56 L 90 03/26/21 22:51 36.6 C 48 L 16 119/63 90 03/26/21 22:19 49 L Exam was not performed today as the patient is in the Covid unit. His EKGs and echocardiogram were reviewed as well as his inpatient studies. IMPRESSIONS: 1. New onset sinus bradycardia 2. History of relatively normal heart rates in the 80s and 90s as an outpatient 3. Admission for Covid and Covid pneumonia with secondary hypoxemia 4. Normal LV systolic function by echo this admission 5. Normal troponin 6. Atrial fibrillation with a rapid ventricular response upon admission with spontaneous conversion to sinus rhythm and short bursts of PAT The reason for his sinus bradycardia at this point is not completely clear especially in light of the fact that his heart rates prior to Covid were higher in sinus rhythm. It is possible he is very sensitive to beta-blockers and this has caused some additional sinus slowing at this point. We have seen in some Covid patients that they have had significant sinus bradycardia after Covid exposure and the etiology is unclear. His TSH is low normal. His free T4 and lyme titers are pending. There is nothing to suggest high degree AV block and his HR over the last 12-18 hours is up into the 80's at times likely with activity. As long as he is asymptomatic with regards to his heart rate there is no indication for pacemaker either temporary or long-term. Once he recovers from his Covid as an outpatient we can arrange to make sure that his heart rate appropriately goes up with exercise either by ETT or Holter ruling out chronotropic incompetence. If he has symptomatic bradycardia theophylline can be used in the short-term to increase his heart rate. This was discussed with Dr. Gutiérrez this morning.
[2021-03-27] MEDS: INSULIN ASPART PER UNIT SC SCH ×4 (08:52→20:58)
[2021-03-27 09:23] LABS: Lyme Ab IgM w/WB Rflx Equivocal (Negative)
--- NOTE | 2021-03-27 13:48 | Hospitalist Progress Note ---
Date of Service March 27, 2021 Assessment & Plan (1) Acute respiratory failure with hypoxia: Plan: Secondary to COVID-19 pneumonia +/-mild heart failure preserved ejection fraction from rate related atrial fibrillation Aim O2 sats > 90% he is on 5L today, no distress, ambulating in the room, doing exercises even CXR 03/26 with increased infiltrates compared to 03/17 continue high dose dexamethasone, decrease to 10mg today Lasix 20mg IV daily for negative balance need to get him down to 3-4L to go home, almost there, feeling a lot better (2) Pneumonia due to COVID-19 virus: Plan: Started on Dexamethasone 6mg IV 03/15, changed to 20 mg daily x 5 d(last day 03/26) then 10 x 5 d (ld 04/01), too far along for Remdesivir at time of admission CRP to low for baricitinib lasix 20 mg started daily 03/22/21, continue this for neg fluid balance (3) Bradycardia: Plan: sinus bradycardia, 50's, today rates are in 60-80's, HR goes up with activity drops to the 30's at times when he is sleeping no pauses will ask cardiology to see him and evaluate metoprolol 25mg has been on hold since he got a dose in evening on 03/[address] Mena, bradycardia could be from COVID as there are not pauses and not symptomatic, no need for pacemaker HR goes up with activity Lyme testing sent (4) Atrial fibrillation with rapid ventricular response: Plan: Likely related to stressor of illness and possibly covid affect on heart, converted to sinus rhythm 03/20/21` Started metoprolol tartrate 25 mg p.o. twice daily had bradycardia in the 30's when sleeping 03/24, got Atropine x 1 and moved to PCU continue to hold metoprolol Anticoagulation with lovenox, will transition to Eliquis on discharge TTE echocardiogram performed 03/18 shows moderate concentric LVH, EF 50 to 55% dilated right ventricle with normal right ventricular function no significant valvular abnormalities TSH normal 03/18/21 (5) Acute congestive heart failure: Plan: Suspect just from rate related atrial fibrillation Lasix 20 mg iv daily TTE shows preserved EF , hfpef (6) Proteinuria: Plan: Will need follow up in 4 to 6 weeks to repeat this. urine without red blood cells concerning for myoglobinuria. elevated CK, but down trending concern if myositis from covid repeat ua for blood and rbc , shows persistent blood but not RBC's 24 hour urine for protein shows 900 mg/24 hours , send out serology ask for nephrology consult, appreciate their input Plan: VTE prophylaxis-sc therapeutic enoxaparin due to atrial arrhythmia Diet -regular Disposition -continues on med telemetry consult cardiology, wean down to 2-3L and try to get home Admission and Anticipated Discharge Date Admission Date: March 17, 2021 Subjective patient says he feels "awesome" he was walking around the room for 20 minutes, doing exercises I appreciate consult from Dr. Mena, patient feels better after speaking with cardiology HR is in 60-80's mostly, goes up with exercise which is appropriate eating well, moving his bowels, making urine hoping to go home in 1-2 days Review of Systems Review of Systems: All systems reviewed & are unremarkable except as noted in Subjective Respiratory: + dyspnea on exertion Physical Exam Physical Exam: General: well developed, well nourished, no acute distress, comfortable Neck: supple, trachea midline, normal thyroid Lungs: clear to auscultation bilaterally, normal respiratory effort, no accessory muscle use, no distress Heart: normal S1 and S2, no murmur, peripheral pulses normal, capillary refill normal, no edema Abdomen: soft, NT, ND, + BS, no hepatomegaly, normal to percussion Extremities: normal in appearance, no cyanosis, no petechiae, strength is 5/5 bilaterally Neuro: awake, cooperative, moves all extremities, no focal motor deficits, CN II-XII intact, sensation in extremities intact, normal speech Skin: warm, dry, no rash, normal turgor Psych: Awake, alert oriented x 3, euthymic affect Results & Data Results & Data ([facility]) Vital Signs (Past 12 Hours) Vital Signs Temp Pulse Resp BP Pulse Ox 03/27/21 11:55 37.0 C 75 20 112/71 90 03/27/21 08:02 36.6 C 45 L 19 102/60 93 03/27/21 06:52 90 03/27/21 05:21 94 03/27/21 04:30 92 03/27/21 03:34 37.0 C 67 19 105/56 L 90 Laboratory Results Laboratory Results - last 24 hr 03/26/21 03/26/21 03/27/21 17:02 19:58 06:50 POC Glucose 138 H 135 H Free T4 (Equil Dialys) Lyme Disease IgG Ab Negative Lyme IgG (Western Blot) Lyme IgG 18 kDa Band Lyme IgG 23 kDa Band Lyme IgG 28 kDa Band Lyme IgG 30 kDa Band Lyme IgG 39 kDa Band Lyme IgG 41 kDa Band Lyme IgG 45 kDa Band Lyme IgG 58 kDa Band Lyme IgG 66 kDa Band Lyme IgG 93 kDa Band Lyme IgM Ab (WB) Lyme Disease IgM Ab Equivocal A Lyme IgM 23 kDa Band Lyme IgM 39 kDa Band Lyme IgM 41 kDa Band 03/27/21 03/27/21 03/27/21 06:50 06:50 07:46 POC Glucose 92 Free T4 (Equil Dialys) Pending Lyme Disease IgG Ab Lyme IgG (Western Blot) Pending Lyme IgG 18 kDa Band Pending Lyme IgG 23 kDa Band Pending Lyme IgG 28 kDa Band Pending Lyme IgG 30 kDa Band Pending Lyme IgG 39 kDa Band Pending Lyme IgG 41 kDa Band Pending Lyme IgG 45 kDa Band Pending Lyme IgG 58 kDa Band Pending Lyme IgG 66 kDa Band Pending Lyme IgG 93 kDa Band Pending Lyme IgM Ab (WB) Pending Lyme Disease IgM Ab Lyme IgM 23 kDa Band Pending Lyme IgM 39 kDa Band Pending Lyme IgM 41 kDa Band Pending 03/27/21 11:24 POC Glucose 135 H Free T4 (Equil Dialys) Lyme Disease IgG Ab Lyme IgG (Western Blot) Lyme IgG 18 kDa Band Lyme IgG 23 kDa Band Lyme IgG 28 kDa Band Lyme IgG 30 kDa Band Lyme IgG 39 kDa Band Lyme IgG 41 kDa Band Lyme IgG 45 kDa Band Lyme IgG 58 kDa Band Lyme IgG 66 kDa Band Lyme IgG 93 kDa Band Lyme IgM Ab (WB) Lyme Disease IgM Ab Lyme IgM 23 kDa Band Lyme IgM 39 kDa Band Lyme IgM 41 kDa Band Medications Administered Current Inpatient Medications Acetaminophen (Acetaminophen 325 Mg Tab) 650 mg PO Q4H PRN PRN Reason: Pain or Fever Stop: 04/16/21 16:24 Last Admin: 03/24/21 04:10 Dose: 650 mg Documented by: Al Hydrox/Mg Hydrox/Simethicone (Aluminum/Magnesium Susp 30 Ml Udc) 15 ml PO Q6H PRN PRN Reason: Indigestion Stop: 04/24/21 16:17 Ascorbic Acid (Ascorbic Acid 500 Mg Tab) 500 mg PO DAILY MARLENY Stop: 04/17/21 08:59 Last Admin: 03/27/21 08:18 Dose: 500 mg Documented by: Benzonatate (Benzonatate 100 Mg Capsule) 100 mg PO TID PRN PRN Reason: Cough Stop: 04/18/21 01:07 Dextromethorphan Polymer Complex (Dextromethorphan Polymr Complx 30 Mg/5 Ml Udp) 30 mg PO Q6H PRN PRN Reason: Cough Stop: 04/17/21 02:51 Last Admin: 03/24/21 09:18 Dose: 30 mg Documented by: Dextrose (Dextrose 50% 50 Ml Syringe) 25 - 50 ml IV UD PRN; Protocol PRN Reason: Hypoglycemia Protocol Stop: 04/16/21 16:24 Enoxaparin Sodium (Enoxaparin 100 Mg/1ml Syr) 90 mg SQ Q12H MARLENY Stop: 04/17/21 19:29 Last Admin: 03/27/21 06:49 Dose: 90 mg Documented by: Glucagon (Glucagon For Inj 1 Mg Vial) 1 mg SQ UD PRN; Protocol PRN Reason: Hypoglycemia Protocol Stop: 04/16/21 16:24 Glucose (Glucose 10 Tabs/Tube) 4 - 8 tabs PO UD PRN; Protocol PRN Reason: Hypoglycemia Protocol Stop: 04/16/21 16:24 Glucose (Glucose 40% Gel 15 Gm Tube) 15 - 30 gm PO UD PRN; Protocol PRN Reason: Hypoglycemia Protocol Stop: 04/16/21 16:24 Dexamethasone 20 mg/ Dextrose 30 mls @ 0.833 mls/min IV QAM MARLENY Stop: 03/29/21 08:59 Last Infusion: 03/27/21 08:23 Dose: Infused Documented by: Insulin Aspart (Insulin Aspart Per Unit) 0 units SC ACHS MARLENY Stop: 04/16/21 16:29 Last Admin: 03/27/21 11:32 Dose: Not Given Documented by: Melatonin (Melatonin 3 Mg Tab) 6 mg PO HS [facility] Stop: 04/23/21 20:59 Last Admin: 03/26/21 23:12 Dose: Not Given Documented by: Menthol (Cough Drop (Sugar Free) Shun 24 Shun/1 Box) 1 shun BUCCAL Q2H PRN PRN Reason: Sore Throat Stop: 04/18/21 01:06 Miscellaneous (Carbohydrates For Hypoglycemia ) 15 - 30 gm PO UD PRN PRN Reason: Hypoglycemia Protocol Stop: 04/16/21 16:24 Ondansetron HCl (Ondansetron Inj 2 Mg/Ml 2 Ml Vial) 4 mg IV Q6H PRN PRN Reason: Nausea Stop: 04/16/21 16:24 PG Care Time/CCT Total # of Minutes Spent Total Time Spent with Patient: Total time spent is greater than 50% in coordination of care (as documented) at patient's floor/unit and/or counseling patient: Coding Level of Care Code 58599 Subseq Hosp Care Lvl 3 Diagnoses Acute respiratory failure with hypoxia J96.01 Pneumonia due to COVID-19 virus U07.1; J12.82 Bradycardia R00.1 Atrial fibrillation with rapid ventricular response I48.91 Acute congestive heart failure I50.9 Proteinuria R80.9
[2021-03-27] MEDS: MELATONIN 3 MG TAB PO SCH (20:59)
[2021-03-28] MEDS: INSULIN ASPART PER UNIT SC SCH ×2 (08:07→11:57)
[2021-03-28] MEDS: ASCORBIC ACID 500 MG TAB PO SCH (08:17)
[2021-03-28] MEDS: ENOXAPARIN 100 MG/1ML SYR SQ SCH (08:17)
[2021-03-28] MEDS: dexAMETHasone 20 MG in DEXTROSE 5% 25 ML IV SCH (08:17)
--- NOTE | 2021-03-28 08:56 | Discharge Summary ---
Date of Service March 28, 2021 Admission HPI Per Admitting Provider Gael Wadsworth is a 50 year old male who presents to the ER with shortness of breath and cough. He is unvaccinated for SARS-CoV-2 and has known COVID-19 pneumonia. He was recently seen in the emergency room 2 days ago and discharged on oxygen and dexamethasone. On follow-up from that visit by phone call today it was recommended he return to the emergency room as appeared to be in increasing respiratory distress. He has been wearing 2 L/min O2 at night however he reports waking up this morning with his O2 sats at 84% on this amount of oxygen. He reports his main problem is shortness of breath especially during a dry coughing spell. He does report mild diarrhea, chest pain only while coughing. He lives with his and 3 children and is managing to isolate upstairs away from them. He thinks he caught this during a hunting trip on March 08. Currently on day 10 of illness. In the ER he was also noted to be in atrial fibrillation. He reports having a history of this. No palpitations, leg swelling, orthopnea or PND. He was referred to medicine for admission ongoing management of COVID-19 pneumonia and atrial fibrillation with rapid ventricular rate. Principal Diagnosis COVID 19 pneumonia Acute hypoxic respiratory failure Discharge Exam General: well developed, well nourished, no acute distress, comfortable Neck: supple, trachea midline, normal thyroid Lungs: clear to auscultation bilaterally, normal respiratory effort, no accessory muscle use, no distress Heart: normal S1 and S2, no murmur, peripheral pulses normal, capillary refill normal, no edema Abdomen: soft, NT, ND, + BS, no hepatomegaly, normal to percussion Extremities: normal in appearance, no cyanosis, no petechiae, strength is 5/5 bilaterally Neuro: awake, cooperative, moves all extremities, no focal motor deficits, CN II-XII intact, sensation in extremities intact, normal speech Skin: warm, dry, no rash, normal turgor Psych: Awake, alert oriented x 3, euthymic affect Discharge Data Allergies Allergy/AdvReac Type Severity Reaction Status Date / Time No Known Drug Allergies Allergy Verified 03/17/21 11:01 Consultations 03/17/21 11:15 ED Decision to Admit Stat 03/23/21 11:23 Consult Nephrology Routine 12/19/21 10:37 Consult Cardiology Routine Hospital Course (1) Acute respiratory failure with hypoxia: Secondary to COVID-19 pneumonia +/-mild heart failure preserved ejection fraction from rate related atrial fibrillation Aim O2 sats > 90% he is down to 2L at rest and 4L on exertion based on 2 step, arranged for home oxygen dexamethasone taper on discharge, 10mg x 4 days, 8mg x 2, 6mg x 2, 4mg x 2 and 2mg x 2 Lasix 20mg IV daily for negative balance, can stop on discharge (2) Pneumonia due to COVID-19 virus: Started on Dexamethasone 6mg IV 03/15, changed to 20 mg daily x 5 d(last day 03/26) then 10 x 5 d (ld 04/01) taper further as stated above too far along for Remdesivir at time of admission CRP to low for baricitinib lasix 20 mg started daily 03/22/21, continue this for neg fluid balance, but can stop on discharge (3) Bradycardia: sinus bradycardia, today rates are in 60-80's, HR goes up with activity drops to the 30's at times when he is sleeping no pauses will ask cardiology to see him and evaluate metoprolol 25mg has been on hold since he got a dose in evening on 03/[address] Mena, bradycardia could be from COVID as there are not pauses and not symptomatic, no need for pacemaker HR goes up with activity Lyme testing sent will follow up with Dr. Mena in a few weeks (4) Atrial fibrillation with rapid ventricular response: Likely related to stressor of illness and possibly covid affect on heart, converted to sinus rhythm 03/20/21, has remained in NSR Started metoprolol tartrate 25 mg p.o. twice daily had bradycardia in the 30's when sleeping 03/24, got Atropine x 1 and moved to PCU continue to hold metoprolol Anticoagulation with lovenox, will transition to Eliquis 5mg BID TTE echocardiogram performed 03/18 shows moderate concentric LVH, EF 50 to 55% dilated right ventricle with normal right ventricular function no significant valvular abnormalities TSH normal 03/18/21 (5) Acute congestive heart failure: Suspect just from rate related atrial fibrillation Lasix 20 mg iv daily TTE shows preserved EF , hfpef (6) Proteinuria: Will need follow up in 4 to 6 weeks to repeat this, will follow up with Dr. Pierre urine without red blood cells concerning for myoglobinuria. elevated CK, but do wn trending concern if myositis from covid repeat ua for blood and rbc , shows persistent blood but not RBC's 24 hour urine for protein shows 900 mg/24 hours , send out serology d/c to home Total Time Total Time Spent Total Time Spent (In Minutes): 35 minutes Discharge Plan Discharge Items Patient Disposition: Home - Self-Care Reason For Visit: ACUTE RESPIRATORY FAILURE,COVID 19 Discharge Diagnosis: COVID 19 pneumonia Acute hypoxic respiratory failure Condition on Discharge: Good Goals: gradually taper off oxygen complete taper of dexamethasone Activity: Resume your previous activity Weightbearing: Full weightbearing Non-emergency contact: Primary Care Provider Call non-emergency contact if: you have any medication questions Follow-up/Referrals: Yahir Jimenez MD [Primary Care Provider] - 04/04/21 3:15 pm (1-2 weeks) Kashmir Pierre MD [Physician] - 04/27/21 11:15 am (4 weeks, follow up for proteinuria) Aditya Mena DO [Physician] - (3-4 weeks, follow up for afib and bradycardia, can be with Kassi JOYCE) Diet: Regular Addtl Attending Provider Instructions: Medications: - DEXAMETHASONE: complete taper, 10mg daily x 4 days, 8mg daily x 2, 6mg daily x 2, 4mg daily x 2, 2mg daily x 2 then stop - ELIQUIS: 5mg twice a day for stroke prevention with afib, start this evening COVID 19 pneumonia, acute hypoxia recovering, still need oxygen but should improve over next few weeks complete taper of dexamethasone stay well nourished, well hydrated follow up with PCP Atrial fibrillation and then bradycardia you have remained in sinus rhythm, often with bradycardia but heart rate goes up with exertion which is appropriate recommend follow up with Dr. Mena, [facility] cardiology, in a few weeks will keep you on Elquis but if you stay in sinus rhythm you may not need this long term care social worker Proteinuria: you had a lot of protein in urine which us abnormal recommend follow up with nephrology, Dr. Pierre, in several weeks Pending Studies at Discharge: No Stand-Alone Forms: My [facility] Biorasis, Smoking Cessation Medications and DC Order Prescriptions: New dexamethasone 4 mg tablet 10 mg PO UD 12 Days Qty: 20 RF: 0 Eliquis 5 mg tablet 5 mg PO BID Qty: 60 RF: 3 Continued ascorbic acid (vitamin C) [Vitamin C] 500 mg Tablet 500 mg PO DAILY RF: 0 zinc 50 mg Tablet 50 mg PO DAILY RF: 0 Discontinued dexamethasone [Decadron] 6 mg tablet 6 mg PO DAILY Qty: 7 RF: 0 Discharge Orders: Discharge Order (Routine); Ordered 03/28/21 Ordered By: Javier Gutiérrez Admission Data Admit Date/Time: 03/17/21 11:48 Attending Provider: Javier Gutiérrez Admit Provider: Luis Conroy Primary Care Provider: Yahir Jimenez Other Providers: Luis Conroy ; Kashmir Pierre ; Gordy Morrell Other Interventions: Discharge Summary Assessment (RN) Last Done: 03/28/21 11:31 Coding Level of Care Code D/C DAY MANAGEMENT >30 MINS Diagnoses Acute respiratory failure with hypoxia J96.01 Pneumonia due to COVID-19 virus U07.1; J12.82 Bradycardia R00.1 Atrial fibrillation with rapid ventricular response I48.91 Acute congestive heart failure I50.9 Proteinuria R80.9
[2021-03-29 00:27] LABS: 18KDIGG Band NON-REACTIVE; 23KDIGG Band NON-REACTIVE; 23KDIGM Band NON-REACTIVE; 28KDIGG Band NON-REACTIVE; 30KDIGG Band NON-REACTIVE; 39KDIGG Band NON-REACTIVE; 39KDIGM Band NON-REACTIVE; 41KDIGG Band REACTIVE; 41KDIGM Band NON-REACTIVE; 45KDIGG Band NON-REACTIVE; 58KDIGG Band NON-REACTIVE; 66KDIGG Band NON-REACTIVE; 93KDIGG Band NON-REACTIVE; Lyme Antibodies, WB IgG NEGATIVE (NEGATIVE); Lyme Antibodies, WB IgM NEGATIVE (NEGATIVE)
[2021-04-02 13:04] LABS: T4 Free by Equ Dialysis 3.2 ng/dL (0.9-2.2)
--- NOTE | 2021-04-12 09:15 | Coding Query ---
CODING QUERY To promote full compliance with coding requirements relating to patient care, provider participation is requested in all cases of head of operation and logistics uncertainty. Please assist us with the question(s) below: Coding Question(s): Patient admitted with Covid Pneumonia. Proteinuria- Nephro Consult stated " Low grade isolated proteinuria likely represents direct glomerular injury related to Covid. Patient presented with REMI/Nephrotic syndrome. Please check below the diagnosis treated during this IP stay pertaining to the proteinuria. . Thanks for your help. Brenton Flowers [facility] Physician's Response(s): ___x____ REMI was treated , POA ATN was treateated , POA Cannot Clinically Correlate if REMI or ATN was treated during this IP stay Other: Please document: Principal Diagnosis: "that condition established after study, to be chiefly responsible for occasioning the admission of the patient to the hospital for care." Co-Existing Principal Diagnosis: "when two or more diagnoses equally meet the criteria for principal diagnosis as determined by the circumstances of admission, diagnostic work up, and/or therapy provided, and the Alphabetic Index, Tabular List, or another coding guideline does not provide sequencing direction, any one of the diagnoses may be sequenced first." "When the physician has documented what appears to be a current diagnosis in the body of the record, but has not included the diagnosis in the final diagnostic statement, the physician should be asked whether the diagnosis should be added." (Source Coding Clinic 2 QTR90. p3-4) CHANELLE
== END 2021-03-28 12:55 | disposition home or self-care (01) | DRG 177 ==
LOC: ED 09:55 → EDINP 11:48 → SUATTDRO 11:48 → 2N 22:00 → 2E 03-25 01:21 → 2S 03-27 21:48